=== PATIENT | female | born 1950 | race Caucasian/White ===

== ENCOUNTER → 2016-05-02 | Outpatient (CLI) | payer MEDICARE ==
[2016-05-02 12:07] LABS: Bilirubin, Delta 0.1 mg/dL (0.0-0.2); Total Bilirubin 0.7 mg/dL (0.2-1.3)
== END | disposition home or self-care (01) ==
LOC: LABWHC1 09:54
PROVIDERS: ATTEND Internal Medicine Cardiovascular Disease
DX: E78.5 Hyperlipidemia, unspecified (principal)
CPT/HCPCS: 36415; 80061; 80076

== ENCOUNTER → 2016-11-02 | Outpatient (CLI) | payer MEDICARE ==
--- NOTE | 2016-11-06 09:11 | MM ---
Reason for exam: screening (asymptomatic). Last mammogram was performed 2 years and 1 month ago. History: Patient is postmenopausal. Benign excisional biopsy of the right breast, 1997. Physical Findings: A clinical breast exam by your physician is recommended on an annual basis and results should be correlated with mammographic findings. MG 3D Screening Mammo W/Cad Bilateral CC and MLO view(s) were taken. Prior study comparison: October 05, 2014, bilateral MG screening mammo w CAD. November 29, 2011, bilateral digital screening mammo w/CAD. There are scattered fibroglandular densities. No significant changes when compared with prior studies. ASSESSMENT: Negative, BI-RAD 1 RECOMMENDATION: Routine screening mammogram of both breasts in 1 year.
== END | disposition home or self-care (01) ==
LOC: RADMAMWWP 15:41
PROVIDERS: ATTEND Family Medicine
DX: Z12.31 Encounter for screening mammogram for malignant neoplasm of breast (principal)
CPT/HCPCS: 77063; G0202

== ENCOUNTER → 2017-06-14 | Outpatient (CLI) | payer MEDICARE | END | disposition home or self-care (01) | LOC: RADMAMWWP 16:47 | PROVIDERS: ATTEND Family Medicine | DX: Z53.9 Procedure and treatment not carried out, unspecified reason (principal) ==

== ENCOUNTER 2017-11-20 20:55 | Emergency (ER) | payer MEDICARE, OTHER ==
[2017-11-20 21:13] VITALS: RESP 18; TEMP 97.8
[2017-11-20 22:10] LABS: Basophils # (A) 0.1 k/uL (0-0.2); Basophils % (A) 1 %; Eosinophils # (A) 0.2 k/uL (0-0.7); Eosinophils % (A) 3 %; HCT 47.4 % (34.0-46.0); HGB 16.2 gm/dL (11.4-16.0); Lymphocytes # (A) 2.6 k/uL (1.0-4.8); Lymphocytes % (A) 33 %; MCHC 34.2 g/dL (31.0-37.0); MCV 93.4 fL (80.0-100.0); Mean Platelet Volume 7.1; Monocytes # (A) 0.5 k/uL (0-1.0); Monocytes % (A) 6 %; Neutrophils # (A) 4.3 k/uL (1.3-7.7); Neutrophils % (A) 54 %; Platelet Count 274 k/uL (150-450); RBC 5.07 m/uL (3.80-5.40); RDW 13.6 % (11.5-15.5)
[2017-11-20 22:18] LABS: ALT 53 U/L (9-52); AST 28 U/L (14-36); Albumin 4.6 g/dL (3.5-5.0); Alkaline Phosphatase 75 U/L (38-126); Anion Gap 10 mmol/L; Blood Urea Nitrogen 24 mg/dL (7-17); Calcium 10.4 mg/dL (8.4-10.2); Carbon Dioxide 23 mmol/L (22-30); Chloride 108 mmol/L (98-107); Glucose 106 mg/dL (74-99); Potassium 3.9 mmol/L (3.5-5.1); Sodium 141 mmol/L (137-145); Total Bilirubin 0.5 mg/dL (0.2-1.3); Total Protein 7.4 g/dL (6.3-8.2)
[2017-11-20 22:21] LABS: Partial Thromboplastin Time 24.1 sec (22.0-30.0); Prothrombin Time 9.7 sec (9.0-12.0)
[2017-11-20] MEDS ORDERED: OXYMETAZOLINE 0.05% NASL SPRAY 1 SPRAY BOTTLE NASAL STA (22:26)
[2017-11-20 23:42] VITALS: BP 145/83; PULSE 67
--- NOTE | 2017-11-20 23:57 | ED ---
General Adult HPI - General Chief complaint: ENT Stated complaint: bloody nose Time Seen by Provider: 11/20/17 21:35 Source: patient, RN notes reviewed, old records reviewed Mode of arrival: ambulatory Limitations: no limitations - History of Present Illness Initial comments: 67-year-old female presents for evaluation of left-sided nosebleed. Patient has history of nosebleeds in the past. She states over the past week she has had several left-sided nosebleeds. She describes the bleeding is quite significant. She is not on any blood thinners. Denies URI symptoms. Denies any trauma to the nose. - Related Data Home Medications Medication Instructions Recorded Confirmed Aspirin [Adult Low Dose Aspirin EC] 81 mg PO DAILY 11/20/17 11/20/17 Cholecalciferol [Vitamin D3] 1,000 unit PO DAILY 11/20/17 11/20/17 Citalopram Hydrobromide [CeleXA] 40 mg PO DAILY 11/20/17 11/20/17 Furosemide [Lasix] 40 mg PO DAILY 11/20/17 11/20/17 LORazepam [Ativan] 0.5 mg PO TID 11/20/17 11/20/17 Metoprolol Succinate (ER) [Toprol 12.5 mg PO HS 11/20/17 11/20/17 Xl] Metoprolol Succinate (ER) [Toprol 25 mg PO DAILY 11/20/17 11/20/17 Xl] Pravastatin Sodium 80 mg PO DAILY 11/20/17 11/20/17 Quinapril HCl 10 mg PO DAILY 11/20/17 11/20/17 Previous Rx's Medication Instructions Recorded Amoxic-Pot Clav 875-125Mg 1 tab PO Q12HR #10 tablet 11/20/17 [Augmentin 875-125] Allergies Allergy/AdvReac Type Severity Reaction Status Date / Time No Known Allergies Allergy Verified 11/20/17 21:32 Review of Systems ROS Statement: Those systems with pertinent positive or pertinent negative responses have been documented in the HPI. ROS Other: All systems not noted in ROS Statement are negative. Past Medical History Past Medical History: Coronary Artery Disease (CAD), Heart Failure, Hyperlipidemia, Hypertension History of Any Multi-Drug Resistant Organisms: None Reported Past Surgical History: No Surgical Hx Reported Past Psychological History: Anxiety, Depression Smoking Status: Never smoker Past Alcohol Use History: None Reported Past Drug Use History: None Reported General Exam Limitations: no limitations General appearance: alert, in no apparent distress Head exam: Present: atraumatic, normocephalic Eye exam: Present: normal appearance, PERRL ENT exam: Present: other (Significant bleeding from the left naris. Bleeding in the posterior oropharynx) Neck exam: Present: tenderness Respiratory exam: Present: normal lung sounds bilaterally. Absent: respiratory distress Cardiovascular Exam: Present: regular rate, normal rhythm GI/Abdominal exam: Present: soft. Absent: distended, tenderness Extremities exam: Present: normal inspection, normal capillary refill. Absent: pedal edema Course Vital Signs 11/20/17 11/20/17 11/20/17 21:11 21:20 23:41 Temperature 97.8 F Pulse Rate 71 67 Respiratory 18 18 Rate Blood Pressure 145/93 156/95 145/83 O2 Sat by Pulse 95 99 Oximetry Medical Decision Making - Medical Decision Making 67-year-old female presenting with nosebleed. This is quite significant on exam. Initial efforts including Afrin compression and so nitrate are unsuccessful. Nasal packing is applied with antibiotic ointment. Given the history laboratory studies are obtained, stable hemoglobin, normal coag studies. Patient is observed in the emergency department with no continued bleeding. Packing will remain in place until follow-up with ENT. She is prescribed prophylactic antibiotics. - Lab Data Result diagrams: 11/20/17 21:56 11/20/17 21:56 Lab Results 11/20/17 11/20/17 11/20/17 Range/Units 21:56 21:56 21:56 WBC 8.0 (3.8-10.6) k/uL RBC 5.07 (3.80-5.40) m/uL Hgb 16.2 H (11.4-16.0) gm/dL Hct 47.4 H (34.0-46.0) % MCV 93.4 (80.0-100.0) fL MCH 32.0 (25.0-35.0) pg MCHC 34.2 (31.0-37.0) g/dL RDW 13.6 (11.5-15.5) % Plt Count 274 (150-450) k/uL Neutrophils % 54 % Lymphocytes % 33 % Monocytes % 6 % Eosinophils % 3 % Basophils % 1 % Neutrophils # 4.3 (1.3-7.7) k/uL Lymphocytes # 2.6 (1.0-4.8) k/uL Monocytes # 0.5 (0-1.0) k/uL Eosinophils # 0.2 (0-0.7) k/uL Basophils # 0.1 (0-0.2) k/uL PT 9.7 (9.0-12.0) sec INR 1.0 (<1.2) APTT 24.1 (22.0-30.0) sec Sodium 141 (137-145) mmol/L Potassium 3.9 (3.5-5.1) mmol/L Chloride 108 H (98-107) mmol/L Carbon Dioxide 23 (22-30) mmol/L Anion Gap 10 mmol/L BUN 24 H (7-17) mg/dL Creatinine 0.50 L (0.52-1.04) mg/dL Est GFR (CKD-EPI)AfAm >90 (>60 ml/min/1.73 sqM) Est GFR (CKD-EPI)NonAf >90 (>60 ml/min/1.73 sqM) Glucose 106 H (74-99) mg/dL Calcium 10.4 H (8.4-10.2) mg/dL Total Bilirubin 0.5 (0.2-1.3) mg/dL AST 28 (14-36) U/L ALT 53 H (9-52) U/L Alkaline Phosphatase 75 (38-126) U/L Total Protein 7.4 (6.3-8.2) g/dL Albumin 4.6 (3.5-5.0) g/dL Disposition Clinical Impression: Epistaxis Disposition: HOME SELF-CARE Condition: Good Instructions: Nosebleed (ED) Prescriptions: Amoxic-Pot Clav 875-125Mg [Augmentin 875-125] 1 tab PO Q12HR #10 tablet Is patient prescribed a controlled substance at d/c from ED?: No Referrals: Abner Randhawa MD [Primary Care Provider] - 1-2 days Devin Engel DO [Doctor of Osteopathic Medicine] - 1-2 days Time of Disposition: 23:56
== END 2017-11-21 00:10 | disposition home or self-care (01) ==
LOC: EC 20:55
DX: R04.0 Epistaxis (principal); I25.10 Atherosclerotic heart disease of native coronary artery without angina pectoris; I11.0 Hypertensive heart disease with heart failure; I50.9 Heart failure, unspecified; E78.5 Hyperlipidemia, unspecified; F32.9 Major depressive disorder, single episode, unspecified; F41.9 Anxiety disorder, unspecified; Z79.82 Long term (current) use of aspirin; Z79.899 Other long term (current) drug therapy
CPT/HCPCS: 30901; 36415; 80053; 85025; 85610; 85730; 99284

== ENCOUNTER → 2018-04-04 | Outpatient (CLI) | payer MEDICARE, OTHER ==
--- NOTE | 2018-04-07 06:36 | MM ---
Reason for exam: screening (asymptomatic). Last mammogram was performed 1 year and 5 months ago. History: Patient is postmenopausal. Benign excisional biopsy of the right breast, 1997. MG Screening Mammo w CAD Bilateral CC and MLO view(s) were taken. Prior study comparison: November 02, 2016, bilateral MG 3d screening mammo w/cad. October 05, 2014, bilateral MG screening mammo w CAD. The breast tissue is heterogeneously dense. This may lower the sensitivity of mammography. No suspicious abnormality right breast. There is a focal asymmetry on the left in the upper outer quadrant at middle depth. ASSESSMENT: Incomplete: need additional imaging evaluation, BI-RAD 0 RECOMMENDATION: Special view mammogram of the left breast.
== END | disposition home or self-care (01) ==
LOC: RADMAMWWP 16:59
PROVIDERS: ATTEND Family Medicine
DX: Z12.31 Encounter for screening mammogram for malignant neoplasm of breast (principal)
CPT/HCPCS: 77067

== ENCOUNTER → 2018-05-13 | Outpatient (CLI) | payer MEDICARE, OTHER ==
--- NOTE | 2018-05-13 10:28 | MM ---
Reason for exam: additional evaluation requested from abnormal screening. Last mammogram was performed 1 month ago. History: Patient is postmenopausal. Benign excisional biopsy of the right breast, 1997. Physical Findings: Nurse did not find any significant physical abnormalities on exam. MG Work Up Mamm w CAD LT Spot compression CC, spot compression MLO, and ML view(s) were taken of the left breast. Prior study comparison: April 04, 2018, bilateral MG screening mammo w CAD. November 02, 2016, bilateral MG 3d screening mammo w/cad. The breast tissue is heterogeneously dense. This may lower the sensitivity of mammography. The questioned upper outer quadrant focal asymmetry disperses on additional views. These results were verbally communicated with the patient and result sheet given to the patient on 05/13/18. ASSESSMENT: Negative, BI-RAD 1 RECOMMENDATION: Return to routine screening mammogram schedule for both breasts. Back on schedule.
== END | disposition home or self-care (01) ==
LOC: RADMAMWWP 09:02
PROVIDERS: ATTEND Family Medicine
DX: R92.8 Other abnormal and inconclusive findings on diagnostic imaging of breast (principal)
CPT/HCPCS: 77065

== ENCOUNTER → 2018-12-19 | Outpatient (CLI) | payer MEDICARE, OTHER ==
--- NOTE | 2018-12-19 16:39 | CT ---
EXAMINATION TYPE: CT abdomen pelvis wo con DATE OF EXAM: 12/19/2018 COMPARISON: 06/03/2010 INDICATION: Right flank pain radiating into right upper quadrant abdominal pain. DLP: 838.1 mGycm, Automated exposure control for dose reduction was used. CONTRAST: None Study performed without Oral Contrast TECHNIQUE: Axial images were obtained from above the diaphragm to the pubic rami in the axial plane a t 5 mm thick sections. Reconstructed images are reviewed on the computer in the coronal plane. FINDINGS: Limited CT sections are obtained the lung bases. The lung bases are clear. CT ABDOMEN: Liver: There is a large dense calcification within the mid right lobe of the liver. Liver is otherwis e unremarkable. Spleen: Normal Pancreas: Normal Adrenal glands: There is thickening of the left adrenal gland measuring 1.0 cm. Gallbladder: Normal Kidneys: No masses are evident. No hydronephrosis is present. There is a hypodense area within the inferior lateral right kidney measuring 1.7 cm in 0 Hounsfield units compatible with a cyst. There a re 2 x 0.3 cm calcifications within the inferior poler right kidney without evidence of obstruction. Aorta: Normal Vascular calcification is within the aorta. Inferior vena cava: Normal. CT PELVIS: Loops of bowel within the abdomen and pelvis are normal. Study is performed without oral contrast limiting bowel evaluation. Appendix: Normal as visualized. Urinary bladder: Normal. Genitourinary structures: Uterus and ovaries are not identified. Osseous structures: No suspicious lytic or sclerotic lesions. Facet degenerative changes and degenera tive disc changes in the lower lumbar spine. IMPRESSIONS: 1. Nonobstructing inferior pole right renal stones. 2. Right inferior pole renal cyst. 3. Calcification within the liver.
== END | disposition home or self-care (01) ==
LOC: RADCTMAIN 15:34
PROVIDERS: ATTEND Family Medicine
DX: N28.1 Cyst of kidney, acquired (principal); N20.0 Calculus of kidney; K76.89 Other specified diseases of liver
CPT/HCPCS: 74176

== ENCOUNTER 2020-05-28 19:31 | Observation (INO) | payer MEDICARE, OTHER ==
--- NOTE | 2020-05-28 19:53 | ED ---
Chest Pain HPI - General Chief Complaint: Chest Pain Stated Complaint: Chest Pain, SOB, Dizziness Time Seen by Provider: 05/28/20 19:35 Source: patient Mode of arrival: wheelchair Limitations: language barrier - History of Present Illness Initial Comments: 69-year-old female with past medical history of hyperlipidemia and hypertension presents to emergency room with reported chest pain and shortness of breath. Patient reports that her symptoms started around 2 PM this afternoon. She has pain located over the left side of her chest which radiates into her left jaw. Admits to associated shortness of breath. Patient follows with Dr. Tello for "bradycardia". Denies previous history of coronary disease. Last stress test was one year ago. Denies history of DVT or PE. No calf pain or swelling. No other alleviating, precipitating or modifying factors - Related Data Home Medications Medication Instructions Recorded Confirmed Aspirin [Adult Low Dose Aspirin EC] 81 mg PO DAILY PRN 11/20/17 05/28/20 Cholecalciferol [Vitamin D3 (25 1,000 unit PO DAILY 11/20/17 05/28/20 Mcg = 1000 Iu)] Citalopram Hydrobromide [CeleXA] 40 mg PO DAILY 11/20/17 05/28/20 Furosemide [Lasix] 20 mg PO BID 11/20/17 05/28/20 LORazepam [Ativan] 0.5 mg PO TID 11/20/17 05/28/20 Metoprolol Succinate (ER) [Toprol 12.5 mg PO HS 11/20/17 05/28/20 XL] Metoprolol Succinate (ER) [Toprol 25 mg PO DAILY 11/20/17 05/28/20 XL] Pravastatin Sodium 80 mg PO DAILY 11/20/17 05/28/20 Quinapril HCl 10 mg PO DAILY 11/20/17 05/28/20 Latanoprost/Pf [Latanoprost 0.005% 1 drop BOTH EYES HS 05/28/20 05/28/20 Eye Drop] Loratadine [Claritin] 10 mg PO DAILY PRN 05/28/20 05/28/20 Vit C/E/Zn/Coppr/Lutein/Zeaxan 1 cap PO BID 05/28/20 05/28/20 [Preservision Areds 2 Softgel] Previous Rx's Medication Instructions Recorded Pantoprazole Sodium [Protonix] 40 mg PO BID #60 tablet. 05/29/20 Allergies Allergy/AdvReac Type Severity Reaction Status Date / Time No Known Allergies Allergy Verified 05/28/20 21:44 Review of Systems ROS Statement: Those systems with pertinent positive or pertinent negative responses have been documented in the HPI. ROS Other: All systems not noted in ROS Statement are negative. EKG Findings - EKG Comments: EKG Findings:: EKG demonstrates a normal sinus rhythm with a ventricular rate of 69. NM interval 170. QRS 168. QTC of 44. Left bundle branch block present. Left axis deviation. No acute ST segment elevations Past Medical History Past Medical History: Coronary Artery Disease (CAD), Heart Failure, Hyperlipidemia, Hypertension History of Any Multi-Drug Resistant Organisms: None Reported Past Surgical History: No Surgical Hx Reported Past Psychological History: Anxiety, Depression Smoking Status: Never smoker Past Alcohol Use History: None Reported Past Drug Use History: None Reported General Exam Limitations: language barrier General appearance: alert, in no apparent distress Head exam: Present: atraumatic, normocephalic, normal inspection Eye exam: Present: normal appearance, PERRL, EOMI. Absent: scleral icterus, conjunctival injection, periorbital swelling ENT exam: Present: normal exam, mucous membranes moist Neck exam: Present: normal inspection. Absent: tenderness, meningismus, lymphadenopathy Respiratory exam: Present: normal lung sounds bilaterally. Absent: respiratory distress, wheezes, rales, rhonchi, stridor Cardiovascular Exam: Present: regular rate, normal rhythm, normal heart sounds. Absent: systolic murmur, diastolic murmur, rubs, gallop, clicks GI/Abdominal exam: Present: soft, normal bowel sounds. Absent: distended, tenderness, guarding, rebound, rigid Extremities exam: Present: normal inspection, full ROM, normal capillary refill. Absent: tenderness, pedal edema, joint swelling, calf tenderness Back exam: Present: normal inspection Neurological exam: Present: alert, oriented X3, CN II-XII intact Psychiatric exam: Present: normal affect, normal mood Skin exam: Present: warm, dry, intact, normal color. Absent: rash Course Vital Signs 05/28/20 05/28/20 05/28/20 19:33 21:00 21:01 Temperature 97.9 F Pulse Rate 71 66 66 Respiratory 20 18 Rate Blood Pressure 166/95 155/93 O2 Sat by Pulse 97 98 98 Oximetry 05/28/20 05/28/20 05/28/20 21:30 22:00 22:30 Temperature Pulse Rate 65 65 66 Respiratory 17 18 Rate Blood Pressure 155/93 159/91 149/92 O2 Sat by Pulse 97 98 Oximetry 05/28/20 05/28/20 05/29/20 23:00 23:30 00:00 Temperature Pulse Rate 65 62 63 Respiratory 18 Rate Blood Pressure 153/94 163/91 149/88 O2 Sat by Pulse 97 Oximetry 05/29/20 05/29/20 00:30 04:37 Temperature Pulse Rate 63 64 Respiratory 18 Rate Blood Pressure 162/94 152/92 O2 Sat by Pulse 96 Oximetry Chest Pain MDM - MDM On arrival patient was placed into room 2. A thorough history and physical exam was performed. Hooked to continuous pulse ox and cardiac monitoring. 12-lead EKG was performed. I will traces are conducted. D-dimer 0.53. Troponin is ne gative. BNP 183. Chest x-ray demonstrates no active cart opponent process. Patient remains pain-free in the emergency department. She was given 2 chewable aspirins that she did take 2 at home. Patient does have a left bundle branch block on 12-lead EKG. Unable to compare this to a previous EKG. Discuss results with the patient and her daughter at bedside. Did recommend overnight observation for cardiology consultation. Patient did agree to this. She is currently awaiting a bed on the floor Disposition Clinical Impression: Chest pain Disposition: ADMITTED IP TO THIS HOSP Condition: Stable Is patient prescribed a controlled substance at d/c from ED?: No Decision to Admit Reason: Admit from EC Decision Date: 05/28/20 Decision Time: 22:36
[2020-05-28] MEDS ORDERED: ASPIRIN 81 MG PO STA (20:14)
[2020-05-28 20:34] LABS: Basophils # (A) 0.1 k/uL (0-0.2); Basophils % (A) 1 %; Eosinophils # (A) 0.3 k/uL (0-0.7); Eosinophils % (A) 4 %; HCT 46.7 % (34.0-46.0); HGB 15.9 gm/dL (11.4-16.0); Lymphocytes % (A) 25 %; MCH 32.1 pg (25.0-35.0); MCV 94.4 fL (80.0-100.0); Mean Platelet Volume 7.2; Monocytes # (A) 0.6 k/uL (0-1.0); Monocytes % (A) 7 %; Neutrophils # (A) 4.8 k/uL (1.3-7.7); Neutrophils % (A) 61 %; Platelet Count 243 k/uL (150-450); RBC 4.95 m/uL (3.80-5.40); RDW 13.1 % (11.5-15.5)
[2020-05-28 20:45] LABS: ALT 46 U/L (4-34); AST 32 U/L (14-36); African American GFR (CKD) >90 (>60 ml/min/1.73 sqM); Albumin 4.5 g/dL (3.5-5.0); Alkaline Phosphatase 90 U/L (38-126); Anion Gap 8 mmol/L; Blood Urea Nitrogen 20 mg/dL (7-17); Calcium 10.6 mg/dL (8.4-10.2); Carbon Dioxide 27 mmol/L (22-30); Chloride 102 mmol/L (98-107); Glucose 109 mg/dL (74-99); Lipase 107 U/L (23-300); Magnesium 2.2 mg/dL (1.6-2.3); Non-African American GFR(CKD) >90 (>60 ml/min/1.73 sqM); Potassium 4.1 mmol/L (3.5-5.1); Sodium 137 mmol/L (137-145); Total Bilirubin 0.6 mg/dL (0.2-1.3); Total Protein 7.4 g/dL (6.3-8.2)
[2020-05-28 20:47] LABS: D-Dimer 0.53 mg/L FEU (<0.60); Partial Thromboplastin Time 24.9 sec (22.0-30.0); Prothrombin Time 10.3 sec (9.0-12.0)
--- NOTE | 2020-05-28 20:49 | XR ---
EXAMINATION TYPE: XR chest 2V DATE OF EXAM: 05/28/2020 COMPARISON: NONE HISTORY: Chest pain TECHNIQUE: 06/11/2010 FINDINGS: There is no heart failure nor confluent pneumonic infiltrate. Costophrenic angles are clear . There are chest leads. Bony thorax is intact. IMPRESSION: No active cardiopulmonary disease. No change.
[2020-05-28 21:03] VITALS: RESP 18
[2020-05-28] MEDS ORDERED: NALOXONE 0.4 MG/ML 1 ML VIAL IV PRN (22:37)
[2020-05-29 02:44] LABS: Basophils # (A) 0.1 k/uL (0-0.2); Basophils % (A) 1 %; Eosinophils # (A) 0.3 k/uL (0-0.7); Eosinophils % (A) 4 %; HCT 45.3 % (34.0-46.0); HGB 15.2 gm/dL (11.4-16.0); Lymphocytes # (A) 2.3 k/uL (1.0-4.8); Lymphocytes % (A) 34 %; MCHC 33.5 g/dL (31.0-37.0); MCV 95.4 fL (80.0-100.0); Mean Platelet Volume 7.4; Monocytes # (A) 0.5 k/uL (0-1.0); Monocytes % (A) 8 %; Neutrophils # (A) 3.4 k/uL (1.3-7.7); Neutrophils % (A) 51 %; Platelet Count 238 k/uL (150-450); RBC 4.75 m/uL (3.80-5.40); RDW 13.1 % (11.5-15.5); WBC 6.7 k/uL (3.8-10.6)
[2020-05-29 03:21] LABS: African American GFR (CKD) >90 (>60 ml/min/1.73 sqM); Anion Gap 9 mmol/L; Blood Urea Nitrogen 17 mg/dL (7-17); Carbon Dioxide 26 mmol/L (22-30); Chloride 103 mmol/L (98-107); Glucose 102 mg/dL (74-99); Non-African American GFR(CKD) >90 (>60 ml/min/1.73 sqM); Potassium 3.7 mmol/L (3.5-5.1); Sodium 138 mmol/L (137-145)
[2020-05-29] MEDS ORDERED: ASPIRIN 81 MG PO PRN (11:18)
[2020-05-29] MEDS ORDERED: FAMOTIDINE 20 MG TAB PO PRN (11:18)
[2020-05-29] MEDS ORDERED: CHOLECALCIFEROL 25 MCG (1000 IU) TABLET PO SCH (11:30)
[2020-05-29] MEDS ORDERED: FUROSEMIDE 20 MG TAB PO SCH (11:30)
[2020-05-29] MEDS ORDERED: VIT A,C & E-LUTEIN-MINERALS 1 EACH TAB PO SCH (11:30)
[2020-05-29] MEDS ORDERED: LORazepam 0.5 MG TAB PO SCH (11:30)
[2020-05-29] MEDS ORDERED: PRAVASTATIN SODIUM 80 MG TAB PO SCH (11:30)
[2020-05-29] MEDS ORDERED: METOPROLOL SUCCINATE (ER) 25 MG TAB.ER.24H PO SCH ×2 (11:30→21:00)
[2020-05-29] MEDS ORDERED: lisinopriL 10 MG TAB PO SCH (11:30)
[2020-05-29] MEDS ORDERED: CITALOPRAM HYDROBROMIDE 20 MG TAB PO SCH (11:30)
[2020-05-29 14:57] VITALS: BP 141/79; PULSE 63; TEMP 97.5
--- NOTE | 2020-05-29 15:34 | P.CRDCN ---
<Kalpana Durham - Last Filed: 05/29/20 15:33> History of Present Illness Consult date: 05/29/20 History of present illness: HISTORY OF PRESENT ILLNESS: This is a 69-year-old female with a past medical history significant for nonischemic cardiomyopathy, hypertension, hype rlipidemia, anxiety, depression, and daily alcohol use. Patient follows in the office with Dr. Tello. We have been asked to see the patient in consultation for chest pain. Patient examined this morning at the bedside. Patient states yesterday afternoon she was at home laying down when she began having discomfort in the upper part of her abdomen. She states the pain progressed and went up into her chest. She states that it felt like heartburn initially. She reports the pain radiated to her left jaw and into her upper back. She denies any nausea or vomiting. She denies any diaphoresis. She reports any shortness of breath. She states the pain was intermittent on and off yesterday throughout the afternoon. She reports when she came to the emergency room the pain had resolved and she has been chest pain-free since that time. Patient states she had a stress test performed greater than 1 year ago which was negative to her knowledge. DIAGNOSTICS: EKG reveals sinus mechanism with left axis deviation and left bundle branch block. Patient does have a history of left bundle branch block per office EKGs Chest xray no active cardiopulmonary disease Laboratory data: WBC 6.7. Hemoglobin 15.2. Platelet count 238. D-dimer 0.53. Sodium 138. Potassium 3.8. BUN 17. Creatinine 0.51. Troponin negative 3. BNP 183. Current home cardiac medications include Lasix 20 mg twice a day, metoprolol succinate 12.5 mg in the morning and 12.5 mg at night, quinapril 10 mg daily, pravastatin 80 mg daily, and aspirin 81 mg daily REVIEW OF SYSTEMS: At the time of my exam: CONSTITUTIONAL: Denies fever or chills. HEENT: Denies blurred vision, vision changes, or eye pain. Denies hemoptysis CARDIOVASCULAR: Denies chest pain, orthopnea, PND or palpitations RESPIRATORY: No shortness of breath. GASTROINTESTINAL: Denies abdominal pain. Denies nausea or vomiting. HEMATOLOGIC: Denies bleeding disorders. GENITOURINARY: Denies any blood in urine. SKIN: Denies pruitis. Denies rash. PHYSICAL EXAM: VITAL SIGNS: Reviewed. GENERAL: Well-developed in no acute distress. HEENT: Head is normocephalic. Pupils are equal, round. Sclerae anicteric. Mucous membranes of the mouth are moist. Neck supple. No JVD or thyromegaly LUNGS: Respirations even and unlabored. Lungs essentially clear to auscultation bilaterally. HEART: Regular rate and rhythm. S1 and S2 heard. ABDOMEN: Soft. Nondistended. Nontender. EXTREMITIES: Normal range of motion. No clubbing or cyanosis. Peripheral pulses intact. No lower extremity edema NEUROLOGIC: Awake and alert. Oriented x 3. ASSESSMENT: Chest pain History of nonischemic cardiomyopathy Chronic systolic congestive heart failure, currently euvolemic History of left bundle branch block Hyperlipidemia Hypertension Daily alcohol use PLAN: An acute coronary event has been ruled out Obtain 2-D echo to assess cardiac structure and function Resume home cardiac medications Dr. Vasques evaluated patient and discussed inpatient versus outpatient stress testing. Patient and her daughter have agreed to be discharged home today and will follow-up on an outpatient basis for stress testing to be performed Nurse practitioner note has been reviewed by physician. Signing provider agrees with the documented findings, assessment, and plan of care. Past Medical History Past Medical History: Coronary Artery Disease (CAD), Heart Failure, Hyperlipidemia, Hypertension History of Any Multi-Drug Resistant Organisms: None Reported Past Surgical History: No Surgical Hx Reported Past Psychological History: Anxiety, Depression Smoking Status: Never smoker Past Alcohol Use History: None Reported Past Drug Use History: None Reported Medications and Allergies Home Medications Medication Instructions Recorded Confirmed Type Aspirin [Adult Low Dose Aspirin EC] 81 mg PO DAILY PRN 11/20/17 05/28/20 History Cholecalciferol [Vitamin D3] 1,000 unit PO DAILY 11/20/17 05/28/20 History Citalopram Hydrobromide [CeleXA] 40 mg PO DAILY 11/20/17 05/28/20 History Furosemide [Lasix] 20 mg PO BID 11/20/17 05/28/20 History LORazepam [Ativan] 0.5 mg PO TID 11/20/17 05/28/20 History Metoprolol Succinate (ER) [Toprol 12.5 mg PO HS 11/20/17 05/28/20 History Xl] Metoprolol Succinate (ER) [Toprol 25 mg PO DAILY 11/20/17 05/28/20 History Xl] Pravastatin Sodium 80 mg PO DAILY 11/20/17 05/28/20 History Quinapril HCl 10 mg PO DAILY 11/20/17 05/28/20 History Famotidine [Pepcid] 20 mg PO BID PRN 05/28/20 05/28/20 History Latanoprost/Pf [Latanoprost 0.005% 1 drop BOTH EYES HS 05/28/20 05/28/20 History Eye Drop] Loratadine [Claritin] 10 mg PO DAILY PRN 05/28/20 05/28/20 History Vit C/E/Zn/Coppr/Lutein/Zeaxan 1 cap PO BID 05/28/20 05/28/20 History [Preservision Areds 2 Softgel] Allergies Allergy/AdvReac Type Severity Reaction Status Date / Time No Known Allergies Allergy Verified 05/28/20 21:44 Physical Exam Vitals: Vital Signs Temp Pulse Pulse Resp BP BP Pulse Ox 05/29/20 08:17 97.8 F 68 18 149/86 94 L 05/29/20 04:37 64 152/92 05/29/20 00:30 63 18 162/94 96 05/29/20 00:00 63 149/88 05/28/20 23:30 62 18 163/91 97 05/28/20 23:00 65 153/94 05/28/20 22:30 66 18 149/92 98 05/28/20 22:00 65 17 159/91 97 05/28/20 21:30 65 155/93 05/28/20 21:01 66 18 155/93 98 05/28/20 21:00 66 98 05/28/20 19:33 97.9 F 71 20 166/95 97 Intake and Output 05/28/20 05/29/20 05/29/20 22:59 06:59 14:59 Other: Weight 86.183 kg 86.183 kg Results 05/29/20 02:14 05/29/20 02:14 Cardiac Enzymes 05/28/20 05/28/20 05/28/20 Range/Units 20:28 20:28 23:00 AST 32 (14-36) U/L Troponin I <0.012 <0.012 (0.000-0.034) ng/mL 05/29/20 Range/Units 02:14 AST (14-36) U/L Troponin I <0.012 (0.000-0.034) ng/mL Coagulation 05/28/20 Range/Units 20:28 PT 10.3 (9.0-12.0) sec APTT 24.9 (22.0-30.0) sec CBC 05/28/20 05/29/20 Range/Units 20:28 02:14 WBC 8.0 6.7 (3.8-10.6) k/uL RBC 4.95 4.75 (3.80-5.40) m/uL Hgb 15.9 15.2 (11.4-16.0) gm/dL Hct 46.7 H 45.3 (34.0-46.0) % Plt Count 243 238 (150-450) k/uL Comprehensive Metabolic Panel 05/28/20 05/29/20 Range/Units 20:28 02:14 Sodium 137 138 (137-145) mmol/L Potassium 4.1 3.7 (3.5-5.1) mmol/L Chloride 102 103 (98-107) mmol/L Carbon Dioxide 27 26 (22-30) mmol/L BUN 20 H 17 (7-17) mg/dL Creatinine 0.60 0.51 L (0.52-1.04) mg/dL Glucose 109 H 102 H (74-99) mg/dL Calcium 10.6 H 10.0 (8.4-10.2) mg/dL AST 32 (14-36) U/L ALT 46 H (4-34) U/L Alkaline Phosphatase 90 (38-126) U/L Total Protein 7.4 (6.3-8.2) g/dL Albumin 4.5 (3.5-5.0) g/dL Current Medications Generic Name Dose Route Start Last Admin Trade Name Freq PRN Reason Stop Dose Admin Aspirin 81 mg 05/29/20 11:18 Aspirin 81 Mg PO DAILY PRN Pain Cholecalciferol 25 mcg 05/29/20 11:30 05/29/20 12:35 Cholecalciferol 25 Mcg (1000 Iu) Tablet PO 25 mcg DAILY EDEN Administration Citalopram Hydrobromide 40 mg 05/29/20 11:30 05/29/20 12:35 Citalopram Hydrobromide 20 Mg Tab PO 40 mg DAILY EDEN Administration Famotidine 20 mg 05/29/20 11:18 Famotidine 20 Mg Tab PO BID PRN GI Upset Furosemide 20 mg 05/29/20 11:30 05/29/20 12:35 Furosemide 20 Mg Tab PO 20 mg BID EDEN Administration Latanoprost 1 drops 05/29/20 21:00 Latanoprost 0.005% Ophth Drops 2.5 Ml Btl BOTH EYES HS EDEN Lisinopril 10 mg 05/29/20 11:30 05/29/20 12:36 Lisinopril 10 Mg Tab PO 10 mg DAILY EDEN Administration Lorazepam 0.5 mg 05/29/20 11:30 05/29/20 12:35 Lorazepam 0.5 Mg Tab PO 0.5 mg TID EDEN Administration Metoprolol Succinate 25 mg 05/29/20 11:30 05/29/20 12:35 Metoprolol Succinate (Er) 25 Mg Tab.Er.24h PO 25 mg DAILY EDEN Administration Metoprolol Succinate 12.5 mg 05/29/20 21:00 Metoprolol Succinate (Er) 25 Mg Tab.Er.24h PO HS [facility] Multivitamins/Minerals 1 each 05/29/20 11:30 05/29/20 12:35 Vit A,C & F-Xpmwah-Pkmsuwwo 1 Each Tab PO 1 each BID EDEN Administration Naloxone HCl 0.2 mg 05/28/20 22:37 Naloxone 0.4 Mg/Ml 1 Ml Vial IV Q2M PRN Opioid Reversal Pravastatin Sodium 80 mg 05/29/20 11:30 05/29/20 12:35 Pravastatin Sodium 80 Mg Tab PO 80 mg DAILY EDEN Administration Intake and Output 05/28/20 05/29/20 05/29/20 22:59 06:59 14:59 Other: Weight 86.183 kg 86.183 kg Patient Weight 05/30/20 06:59 Weight 86.183 kg 05/29/20 02:14 05/29/20 02:14 <Zach Vasques - Last Filed: 05/29/20 20:34> Physical Exam Vitals: Vital Signs Temp Pulse Pulse Resp BP BP Pulse Ox 05/29/20 14:57 97.5 F L 63 18 141/79 95 05/29/20 14:00 63 18 05/29/20 08:17 97.8 F 68 18 149/86 94 L 03/06/21 08:00 63 18 05/29/20 04:37 64 152/92 05/29/20 00:30 63 18 162/94 96 05/29/20 00:00 63 149/88 05/28/20 23:30 62 18 163/91 97 05/28/20 23:00 65 153/94 05/28/20 22:30 66 18 149/92 98 05/28/20 22:00 65 17 159/91 97 05/28/20 21:30 65 155/93 05/28/20 21:01 66 18 155/93 98 05/28/20 21:00 66 98 Intake and Output 05/29/20 05/29/20 05/29/20 06:59 14:59 22:59 Intake Total 240 Balance 240 Intake: Oral 240 Other: Voiding Method Toilet # Voids 2 Weight 86.183 kg Results 05/29/20 02:14 05/29/20 02:14 Cardiac Enzymes 05/28/20 05/28/20 05/28/20 Range/Units 20:28 20:28 23:00 AST 32 (14-36) U/L Troponin I <0.012 <0.012 (0.000-0.034) ng/mL 05/29/20 Range/Units 02:14 AST (14-36) U/L Troponin I <0.012 (0.000-0.034) ng/mL Coagulation 05/28/20 Range/Units 20:28 PT 10.3 (9.0-12.0) sec APTT 24.9 (22.0-30.0) sec CBC 05/28/20 05/29/20 Range/Units 20:28 02:14 WBC 8.0 6.7 (3.8-10.6) k/uL RBC 4.95 4.75 (3.80-5.40) m/uL Hgb 15.9 15.2 (11.4-16.0) gm/dL Hct 46.7 H 45.3 (34.0-46.0) % Plt Count 243 238 (150-450) k/uL Comprehensive Metabolic Panel 05/28/20 05/29/20 Range/Units 20:28 02:14 Sodium 137 138 (137-145) mmol/L Potassium 4.1 3.7 (3.5-5.1) mmol/L Chloride 102 103 (98-107) mmol/L Carbon Dioxide 27 26 (22-30) mmol/L BUN 20 H 17 (7-17) mg/dL Creatinine 0.60 0.51 L (0.52-1.04) mg/dL Glucose 109 H 102 H (74-99) mg/dL Calcium 10.6 H 10.0 (8.4-10.2) mg/dL AST 32 (14-36) U/L ALT 46 H (4-34) U/L Alkaline Phosphatase 90 (38-126) U/L Total Protein 7.4 (6.3-8.2) g/dL Albumin 4.5 (3.5-5.0) g/dL Intake and Output 05/29/20 05/29/20 05/29/20 06:59 14:59 22:59 Intake Total 240 Balance 240 Intake: Oral 240 Other: Voiding Method Toilet # Voids 2 Weight 86.183 kg Patient Weight 05/30/20 06:59 Weight 86.183 kg 05/29/20 02:14 05/29/20 02:14
--- NOTE | 2020-05-29 17:35 | ECHOF ---
Referral Reason:lv function MEASUREMENTS -------- HEIGHT: 165.1 cm WEIGHT: 86.2 kg BP: IVSd: 1.2 cm (0.6 - 1.1) LVIDd: 4.2 cm (3.9 - 5.3) LVPWd: 1.2 cm (0.6 - 1.1) IVSs: 1.4 cm LVIDs: 2.9 cm LVPWs: 1.4 cm Ao Diam: 3.3 cm (2.0 - 3.7) AV Cusp: 1.9 cm (1.5 - 2.6) LA Diam: 3.7 cm (2.7 - 3.8) MV EXCURSION: 11.106 mm (> 18.000) MV EF SLOPE: 47 mm/s (70 - 150) EPSS: 1.5 cm MV E Yehuda: 0.65 m/s MV DecT: 252 ms MV A Yehuda: 0.73 m/s MV E/A Ratio: 0.89 RAP: 5.00 mmHg RVSP: 9.86 mmHg FINDINGS -------- This was a technically difficult study with suboptimal views. The left ventricular size is normal. Left ventricular wall thickness is normal. Overall left vent ricular systolic function is mild-moderately impaired with, an EF between 40 - 45 %. There is parad oxical/dysynergic septal motion consistent with left bundle branch block. The right ventricle is normal in size. The left atrial size is normal. The right atrial size is normal. 5.0mg of Lumason was utilized for enhancement of images The aortic valve is trileaflet and appears structurally normal. The mitral valve is normal. There is trace mitral regurgitation. The tricuspid valve appears structurally normal. Trace tricuspid regurgitation present. Right kenyatta tricular systolic pressure is normal at < 35 mmHg. There is no pulmonic regurgitation present. The aortic root size is normal. IVC Not well visulized. There is no pericardial effusion. CONCLUSIONS -------- 1. The left ventricular size is normal. 2. Left ventricular wall thickness is normal. 3. Overall left ventricular systolic function is mild-moderately impaired with, an EF between 40 - 45 %. 4. There is paradoxical/dysynergic septal motion consistent with left bundle branch block. 5. There is trace mitral regurgitation. 6. Trace tricuspid regurgitation present. 7. There is no pericardial effusion. [employer]ER: Dominique Link RDCS
[2020-05-29] MEDS ORDERED: LATANOPROST 0.005% OPHTH DROPS 2.5 ML BTL BOTH EYES SCH (21:00)
--- NOTE | 2020-05-29 23:06 | P.HPIM ---
History of Present Illness H&P Date: 05/29/20 Chief Complaint: Chest pain History of presenting complaint: This is a very pleasant 69-year-old weeks speaking lady. She follows with Dr. padilla order [facility] and Dr. Herrera from cardiology. Chronic stable medical conditions include possible CHF, hypertension, hyperlipidemia. Denies any prior coronary artery disease. Patient yesterday held and her housework around 2 PM and to light on the couch. She fell this burning sensation from the epigastrium going upwards right up through her neck. Patient has been getting worsening reflux symptoms. Denied any perspiration dizziness lightheadedness. Has felt tired. Symptoms lasted for a few hours. Patient did take couple of baby aspirins and also took liquid Tums. Not much help. Decided to come in. Her daughter is at the bedside. Review of systems: GEN.: None EYES: None HEENT: None NECK: None RESPIRATORY: None CARDIOVASCULAR: As above GASTROINTESTINAL: As above GENITOURINARY: None MUSCULOSKELETAL: None LYMPHATICS: None HEMATOLOGICAL: None PSYCHIATRY: None NEUROLOGICAL: None Past medical history to include: Possible congestive heart failure, hypertension, hyperlipidemia, anxiety depression Social history: Lives with her daughter. Drinks one cocktail a day. No smoking. Family history: Reviewed, noncontributory to presentation Physical examination: VITAL SIGNS: 97.5, 68, 18, 149/86, 94% on room air GENERAL: BMI 31.6, laying in bed, awake. EYES: Pupils equal. Conjunctiva normal. HEENT: External appearance of nose and ears normal, oral cavity grossly normal. NECK: JVD not raised; masses not palpable. HEART: First and second heart sounds are normal; no edema. LUNGS: Respiratory rate normal; clear to auscultation. ABDOMEN: Soft, nontender, liver spleen not palpable, no masses palpable. PSYCH: Alert and oriented x3; mood and affect normal. NEUROLOGICAL: Cranial nerves grossly intact; no facial asymmetry, power and sensation grossly intact. LYMPHATICS: No lymph nodes palpable in the axilla and neck INVESTIGATIONS, reviewed in the clinical context: White count 6.7 hemoglobin 13.2 platelets 238 potassium 3.7 creatinine 0.5 Troponin I 3 negative ProBNP 183 Coronavirus [PCR]-not detected EKG tracing personally reviewed by me-sinus rhythm, left bundle-branch block Chest x-ray film personally reviewed by me-cardiomegaly 2-D echocardiogram-EF 40-45% Assessment and plan: -Patient presented with a burning sensation from the epigastric right upper the neck. This could be reflux or exacerbation doing patient's cardiac risk factors need to consider this is unstable angina. Cartilage consulted. -Chronic congestive heart failure from systolic dysfunction EF 40-45%. On Lasix and beta damon -Left bundle-branch block line-hyperlipidemia -Essential hypertension, on Toprol-XL -Anxiety depression otherwise specified, on Celexa -Obesity BMI 31.6, for weight loss measures Care was discussed with the patient and daughter the bedside. Cardiology was consulted. Past Medical History Past Medical History: Coronary Artery Disease (CAD), Heart Failure, Hyperlipidemia, Hypertension History of Any Multi-Drug Resistant Organisms: None Reported Past Surgical History: No Surgical Hx Reported Past Psychological History: Anxiety, Depression Smoking Status: Never smoker Past Alcohol Use History: None Reported Past Drug Use History: None Reported Medications and Allergies Home Medications Medication Instructions Recorded Confirmed Type Aspirin [Adult Low Dose Aspirin EC] 81 mg PO DAILY PRN 11/20/17 05/28/20 History Cholecalciferol [Vitamin D3] 1,000 unit PO DAILY 11/20/17 05/28/20 History Citalopram Hydrobromide [CeleXA] 40 mg PO DAILY 11/20/17 05/28/20 History Furosemide [Lasix] 20 mg PO BID 11/20/17 05/28/20 History LORazepam [Ativan] 0.5 mg PO TID 11/20/17 05/28/20 History Metoprolol Succinate (ER) [Toprol 12.5 mg PO HS 11/20/17 05/28/20 History Xl] Metoprolol Succinate (ER) [Toprol 25 mg PO DAILY 11/20/17 05/28/20 History Xl] Pravastatin Sodium 80 mg PO DAILY 11/20/17 05/28/20 History Quinapril HCl 10 mg PO DAILY 11/20/17 05/28/20 History Famotidine [Pepcid] 20 mg PO BID PRN 05/28/20 05/28/20 History Latanoprost/Pf [Latanoprost 0.005% 1 drop BOTH EYES HS 05/28/20 05/28/20 History Eye Drop] Loratadine [Claritin] 10 mg PO DAILY PRN 05/28/20 05/28/20 History Vit C/E/Zn/Coppr/Lutein/Zeaxan 1 cap PO BID 05/28/20 05/28/20 History [Preservision Areds 2 Softgel] Allergies Allergy/AdvReac Type Severity Reaction Status Date / Time No Known Allergies Allergy Verified 05/28/20 21:44 Physical Exam Vitals: Vital Signs Temp Pulse Pulse Resp BP BP Pulse Ox 05/29/20 08:17 97.8 F 68 18 149/86 94 L 05/29/20 04:37 64 152/92 05/29/20 00:30 63 18 162/94 96 05/29/20 00:00 63 149/88 05/28/20 23:30 62 18 163/91 97 05/28/20 23:00 65 153/94 05/28/20 22:30 66 18 149/92 98 05/28/20 22:00 65 17 159/91 97 05/28/20 21:30 65 155/93 05/28/20 21:01 66 18 155/93 98 05/28/20 21:00 66 98 05/28/20 19:33 97.9 F 71 20 166/95 97 Intake and Output 05/28/20 05/29/20 05/29/20 22:59 06:59 14:59 Other: Weight 86.183 kg 86.183 kg Results CBC & Chem 7: 05/29/20 02:14 05/29/20 02:14 Labs: Abnormal Lab Results - Last 24 Hours (Table) 05/28/20 05/28/20 05/29/20 Range/Units 20:28 20:28 02:14 Hct 46.7 H (34.0-46.0) % BUN 20 H (7-17) mg/dL Creatinine 0.51 L (0.52-1.04) mg/dL Glucose 109 H 102 H (74-99) mg/dL Calcium 10.6 H (8.4-10.2) mg/dL ALT 46 H (4-34) U/L Thrombosis Risk Factor Assmnt - Choose All That Apply Any of the Below Risk Factors Present?: Yes Each Factor Represents 1 point: Obesity (BMI >25) Other Risk Factors: Yes Each Risk Factor Represents 2 Points: Age 61-74 years Other congenital or acquired thrombophilia - If yes, enter type in comment: No Thrombosis Risk Factor Assessment Total Risk Factor Score: 3 Thrombosis Risk Factor Assessment Level: Moderate Risk
--- NOTE | 2020-05-29 23:10 | P.DS ---
Providers Date of admission: 05/28/20 22:38 Expected date of discharge: 05/29/20 Attending physician: Jose Daniel Lora Consults: 05/28/20 22:38 Consult Physician Urgent Consulting Provider: [facility] Consult Reason/Comments: acute chest pain, possible acs Do you want consulting provider notified?: Yes Primary care physician: Abner Randhawa MD Hospital Course: Chief Complaint: Chest pain History of presenting complaint: This is a very pleasant 69-year-old weeks speaking lady. She follows with Dr. randhawa order [facility] and Dr. Herrera from cardiology. Chronic stable medical conditions include possible CHF, hypertension, hyperlipidemia. Denies any prior coronary artery disease. Patient yesterday held and her housework ar ound 2 PM and to light on the couch. She fell this burning sensation from the epigastrium going upwards right up through her neck. Patient has been getting worsening reflux symptoms. Denied any perspiration dizziness lightheadedness. Has felt tired. Symptoms lasted for a few hours. Patient did take couple of baby aspirins and also took liquid Tums. Not much help. Decided to come in. Her daughter is at the bedside. Patient seen by Dr. Vasques from cardiology He discussed with the patient and daughter. They have opted for an outpatient stress test. Consultation: Dr. Vasques from cardiology Past medical history to include: Possible congestive heart failure, hypertension, hyperlipidemia, anxiety depression Social history: Lives with her daughter. Drinks one cocktail a day. No smoking. Family history: Reviewed, noncontributory to presentation Physical examination: VITAL SIGNS: 97.5, 63, 18, 141 with 79, 95% room air GENERAL: BMI 31.6, laying in bed, awake. EYES: Pupils equal. Conjunctiva normal. NECK: JVD not raised; masses not palpable. HEART: First and second heart sounds are normal; no edema. LUNGS: Respiratory rate normal; clear to auscultation. ABDOMEN: Soft, nontender, liver spleen not palpable, no masses palpable. PSYCH: Alert and oriented x3; mood and affect normal. INVESTIGATIONS, reviewed in the clinical context: White count 6.7 hemoglobin 13.2 platelets 238 potassium 3.7 creatinine 0.5 Troponin I 3 negative ProBNP 183 Coronavirus [PCR]-not detected EKG tracing personally reviewed by me-sinus rhythm, left bundle-branch block Chest x-ray film personally reviewed by me-cardiomegaly 2-D echocardiogram-EF 40-45% Assessment and plan: -Patient presented with a burning sensation from the epigastric right upper the neck. This could be reflux or exacerbation doing patient's cardiac risk factors need to consider this is unstable angina. Per cardiology discussion with patient [facility] outpatient stress test -GERD acute on chronic exacerbation. Increase dose of PPI -Chronic congestive heart failure from systolic dysfunction EF 40-45%. On Lasix and beta damon -Left bundle-branch block line-hyperlipidemia -Essential hypertension, on Toprol-XL -Anxiety depression otherwise specified, on Celexa -Obesity BMI 31.6, for weight loss measures Disposition: Home. Patient Condition at Discharge: Stable Plan - Discharge Summary Discharge Rx Participant: No New Discharge Prescriptions: No Action Metoprolol Succinate (ER) [Toprol Xl] 12.5 mg PO HS Quinapril HCl 10 mg PO DAILY Pravastatin Sodium 80 mg PO DAILY Cholecalciferol [Vitamin D3] 1,000 unit PO DAILY Aspirin [Adult Low Dose Aspirin EC] 81 mg PO DAILY PRN PRN Reason: Pain Metoprolol Succinate (ER) [Toprol Xl] 25 mg PO DAILY LORazepam [Ativan] 0.5 mg PO TID Furosemide [Lasix] 20 mg PO BID Citalopram Hydrobromide [CeleXA] 40 mg PO DAILY Latanoprost/Pf [Latanoprost 0.005% Eye Drop] 1 drop BOTH EYES HS Famotidine [Pepcid] 20 mg PO BID PRN PRN Reason: Gi Upset Vit C/E/Zn/Coppr/Lutein/Zeaxan [Preservision Areds 2 Softgel] 1 cap PO BID Loratadine [Claritin] 10 mg PO DAILY PRN PRN Reason: Allergy Symptoms Discharge Medication List Aspirin [Adult Low Dose Aspirin EC] 81 mg PO DAILY PRN 11/20/17 [History] Cholecalciferol [Vitamin D3] 1,000 unit PO DAILY 11/20/17 [History] Citalopram Hydrobromide [CeleXA] 40 mg PO DAILY 11/20/17 [History] Furosemide [Lasix] 20 mg PO BID 11/20/17 [History] LORazepam [Ativan] 0.5 mg PO TID 11/20/17 [History] Metoprolol Succinate (ER) [Toprol Xl] 12.5 mg PO HS 11/20/17 [History] Metoprolol Succinate (ER) [Toprol Xl] 25 mg PO DAILY 11/20/17 [History] Pravastatin Sodium 80 mg PO DAILY 11/20/17 [History] Quinapril HCl 10 mg PO DAILY 11/20/17 [History] Famotidine [Pepcid] 20 mg PO BID PRN 05/28/20 [History] Latanoprost/Pf [Latanoprost 0.005% Eye Drop] 1 drop BOTH EYES HS 05/28/20 [History] Loratadine [Claritin] 10 mg PO DAILY PRN 05/28/20 [History] Vit C/E/Zn/Coppr/Lutein/Zeaxan [Preservision Areds 2 Softgel] 1 cap PO BID 05/28/20 [History] Follow up Appointment(s)/Referral(s): Zach Vasques DO [STAFF PHYSICIAN] - 1 Week Abner Randhawa MD [Primary Care Provider] - 1-2 days Patient Instructions/Handouts: Chest Pain (DC) Activity/Diet/Wound Care/Special Instructions: Take one aspirin 81 mg daily and over the counter pepcid as needed.
== END 2020-05-29 15:48 | disposition home or self-care (01) ==
LOC: EC 19:31 → 6NMEDSUR 22:38
PROVIDERS: ADMIT Hospitalist; ATTEND Hospitalist
DX: R07.9 Chest pain, unspecified (principal); K21.9 Gastro-esophageal reflux disease without esophagitis; E66.9 Obesity, unspecified; I11.0 Hypertensive heart disease with heart failure; I25.10 Atherosclerotic heart disease of native coronary artery without angina pectoris; F32.9 Major depressive disorder, single episode, unspecified; I44.7 Left bundle-branch block, unspecified; I50.22 Chronic systolic (congestive) heart failure; E78.5 Hyperlipidemia, unspecified; Z68.31 Body mass index [BMI] 31.0-31.9, adult; Z79.82 Long term (current) use of aspirin; Z20.822 Contact with and (suspected) exposure to COVID-19; Z79.899 Other long term (current) drug therapy; F41.8 Other specified anxiety disorders
CPT/HCPCS: 99285; 36415; 93005; 85379; 83880; 80053; 80048; 83690; 83735; 84484 ×2; 85025 ×2; 85610; 85730; 87635; 71046; G0378 ×2; C8929; Q9950; 93306

== ENCOUNTER → 2020-07-29 | Outpatient (CLI) | payer MEDICARE ==
[2020-07-30 00:04] LABS: African American GFR (CKD) 102.5 (60.0-200.0); Anion Gap 8.3 mmol/L (4.00-12.00); BUN/Creat Ratio 22.86 Ratio (12.00-20.00); Calcium 9.8 mg/dL (8.7-10.3); Carbon Dioxide 27.7 mmol/L (21.6-31.8); Magnesium 2.1 mg/dL (1.5-2.4); Non-African American GFR(CKD) 88.4 (60.0-200.0); Potassium 4.4 mmol/L (3.5-5.5)
== END | disposition home or self-care (01) ==
LOC: LABWHC1 09:43
DX: I42.8 Other cardiomyopathies (principal)
CPT/HCPCS: 36415; 80048; 83735; 83880

== ENCOUNTER → 2021-04-28 | Outpatient (CLI) | payer MEDICARE ==
--- NOTE | 2021-04-28 15:22 | BD ---
EXAMINATION TYPE: Axial Bone Density DATE OF EXAM: 04/28/2021 COMPARISON: 11.29.2011 CLINICAL HISTORY: 70 YR OLD FEMALE.......ICD-10 CODE: N95.1 MENOPAUSAL Height: 62.3 SLIGHT LANGUAGE BARRIER Weight: 194 FRAX RISK QUESTIONS: Glucocorticoids (More than 3mos): YES (Ex: prednisone, prednisolone, methylprednisolone, dexamethasone, and hydrocortisone). RISK FACTORS HISTORY OF: Postmenopausal woman: YES, AT AGE 50 YRS OLD, TOTAL HYST Lost more than 2 inches in height since high school: YES Frequent falls: UNSTEADY Hyperparathyroidism: NO Adrenal Insufficiency: NO MEDICATIONS: Prednisone or other steroids: YES, FOR ARTHRITIS Additional Medications: BP MEDS, ANTI ANXIETY/DEPRESSANTS, REFLUX MEDS, STATIN FOR CHOLESTEROL, VIT D AND CALCIUM Additional History: HYPERTENSION, ANXIETY, REFLUX, CHOLESTEROL, ARTHRITIS, EXAM MEASUREMENTS: Bone mineral densitometry was performed using the [email or web address] System. Bone mineral density as measured about the Lumbar spine is: ----- L1-L4(G/cm2): 1.141 T Score Values are as follows: ----- L1: -0.5 ----- L2: -1.7 ----- L3: -2.2 ----- L4: 1.5 ----- L1-L4: -0.3 Bone mineral density has: Increased 0.2% since study of: 11.29.2011 Bone mineral density about the R hip (g/cm2): 0.968 Bone mineral density about the L hip (g/cm2): 0.938 T Score values are as follows: -----R Neck: -0.8 -----L Neck: -1.5 -----R Total: -0.3 -----L Total: -0.6 Bone mineral density has: Decreased -2.4% since study of: 11.29.2011 FRAX%S: THERE IS A 11.6% CHANCE FOR A MAJOR OSTEOPOROTIC FX AND A 2.7% FOR HIP......PROBABILITY F OR FX IN 10 YRS TIME IMPRESSION: Osteopenia (T Score between -2.5 and -1). There is slightly increased risk of fracture and the patient may be considered for treatment. Re-Screen 2-5 years. NOTE: T-SCORE=SD OF THE YOUNG ADULT MEAN.
== END | disposition home or self-care (01) ==
LOC: RADBDWWP 09:52
PROVIDERS: ATTEND Obstetrics & Gynecology
DX: M85.88 Other specified disorders of bone density and structure, other site (principal); Z78.0 Asymptomatic menopausal state
CPT/HCPCS: 77080

== ENCOUNTER → 2021-05-24 | Outpatient (CLI) | payer MEDICARE ==
--- NOTE | 2021-05-25 09:03 | MM ---
Reason for exam: screening (asymptomatic). Last mammogram was performed 3 years ago. History: Patient is postmenopausal. Benign excisional biopsy of the right breast, 1997. Physical Findings: A clinical breast exam by your physician is recommended on an annual basis and results should be correlated with mammographic findings. MG 3D Screening Mammo W/Cad Bilateral CC and MLO view(s) were taken. Prior study comparison: May 13, 2018, left breast MG work up mamm w CAD LT. April 04, 2018, bilateral MG screening mammo w CAD. The breast tissue is heterogeneously dense. This may lower the sensitivity of mammography. Stable benign calcifications. Focal asymmetry upper outer left breast. This finding is changed when compared with previous exams. ASSESSMENT: Incomplete: need additional imaging evaluation, BI-RAD 0 RECOMMENDATION: Special view mammogram of the left breast. If lesion persists on supplemental views, image directed ultrasound is recommended. [facility] will attempt to contact patient to return for supplemental views and ultrasound if indicated.
== END | disposition home or self-care (01) ==
LOC: RADMAMWWP 09:30
PROVIDERS: ATTEND Obstetrics & Gynecology
DX: Z12.31 Encounter for screening mammogram for malignant neoplasm of breast (principal); Z78.0 Asymptomatic menopausal state
CPT/HCPCS: 77063; 77067

== ENCOUNTER → 2021-05-27 | Outpatient (CLI) | payer MEDICARE ==
--- NOTE | 2021-05-27 11:13 | MM ---
Reason for exam: additional evaluation requested from abnormal screening. Last mammogram was performed less than 1 month ago. History: Patient is postmenopausal. Benign excisional biopsy of the right breast, 1997. Physical Findings: A clinical breast exam by your physician is recommended on an annual basis and results should be correlated with mammographic findings. MG 3D Work Up W/Cad LT Spot compression CC, spot compression MLO, and LM view(s) were taken of the left breast. Prior study comparison: May 24, 2021, bilateral MG 3d screening mammo w/cad. May 13, 2018, left breast MG work up mamm w CAD LT. The breast tissue is heterogeneously dense. This may lower the sensitivity of mammography. There is no discrete abnormality including area of concern. These results were verbally communicated with the patient and result sheet given to the patient on 05/27/21. ASSESSMENT: Benign, BI-RAD 2 RECOMMENDATION: Return to routine screening mammogram schedule for both breasts.
== END | disposition home or self-care (01) ==
LOC: RADMAMWWP 10:36
PROVIDERS: ATTEND Obstetrics & Gynecology
DX: R92.8 Other abnormal and inconclusive findings on diagnostic imaging of breast (principal); Z78.0 Asymptomatic menopausal state
CPT/HCPCS: 77065; G0279; 77061

== ENCOUNTER 2021-06-22 08:32 | Day surgery (SDC) | payer MEDICARE ==
[2021-06-20 16:34] VITALS: BMI 31.6
[~2021-06-22 08:32] MED LIST: LACTATED RINGERS 1,000 ML IV SCH
[2021-06-22 09:08] VITALS: TEMP 97.7
[2021-06-22] MEDS ORDERED: PROPOFOL 10 MG/ML 20 ML VIAL IV ONE (09:46)
[2021-06-22] MEDS ORDERED: LIDOCAINE 1% INJ 10MG/ML (20 ML MDV) ONE (09:46)
--- NOTE | 2021-06-22 10:27 | P.PCN ---
Date of Procedure: 06/22/21 Procedure(s) Performed: BRIEF HISTORY: Patient is a 70-year-old pleasant female scheduled for an elective colonoscopy as a part of screening for colorectal neoplasia. PROCEDURE PERFORMED: Colonoscopy with biopsy. PREOPERATIVE DIAGNOSIS: Screening for colon cancer. IV sedation per Anesthesia. PROCEDURE: After informed consent was obtained, the patient, was brought into the endoscopy unit. IV sedation was administered by Anesthesia under continuous monitoring. Digital rectal examination was normal. Initially the Olympus CF-160 flexible video colonoscope was then inserted in the rectum, gradually advanced into the cecum without any difficulty. Careful examination was performed as the scope was gradually being withdrawn. Ileocecal valve and the appendiceal orifice were visualized and appeared normal. Prep was excellent. Mucosa of the cecum, ascending colon, normal. In the transverse colon there was a 5 mm polyp that was removed by cold biopsy. Rest of the transverse colon, descending colon, sigmoid colon, and rectum appeared normal. At her sigmoid diverticulosis. Retroflexion was performed in the rectum and no lesions were seen. The patient tolerated the procedure well. IMPRESSION: 3 mm transverse colon polyp status post cold biopsy Rest of the colon appeared normal RECOMMENDATIONS: Findings of this examination were discussed with the patient and is a family. She was advised to follow with the biopsy results. If the biopsy reveals adenoma she can have a repeat colonoscopy in 5 years
[2021-06-22 10:53] VITALS: BP 155/89; PULSE 77; RESP 16
== END 2021-06-22 11:14 | disposition home or self-care (01) ==
LOC: ORWHC2ENDO 08:32
PROVIDERS: ATTEND Internal Medicine Gastroenterology
DX: Z12.11 Encounter for screening for malignant neoplasm of colon (principal); K63.5 Polyp of colon; K57.30 Diverticulosis of large intestine without perforation or abscess without bleeding; K21.9 Gastro-esophageal reflux disease without esophagitis; I10 Essential (primary) hypertension; E78.5 Hyperlipidemia, unspecified; F41.9 Anxiety disorder, unspecified; F32.A Depression, unspecified; Z79.82 Long term (current) use of aspirin; Z79.899 Other long term (current) drug therapy
CPT/HCPCS: 88305; 45380; J2001; J2704

== ENCOUNTER → 2021-07-22 | Outpatient (CLI) | payer MEDICARE ==
[2021-07-22 15:42] LABS: Appearance,Urine Clear (Clear); Bilirubin,Urine Negative (Negative); Blood,Urine Negative (Negative); Color,Urine Light Yellow; Glucose,Urine (UA) Negative (Negative); Hyaline Casts,Urine 1 /lpf (0-2); Ketones,Urine Negative (Negative); Leukocyte Esterase,Urine Small (Negative); Mucus,Urine Rare /hpf; Nitrite,Urine Negative (Negative); Protein,Urine Negative (Negative); RBC,Urine <1 /hpf (0-5); Specific Gravity,Urine 1.009 (1.001-1.035); Urobilinogen,Urine <2.0 mg/dL (<2.0); WBC,Urine 3 /hpf (0-5)
[2021-07-22 15:44] LABS: ALT 51 U/L (4-34); AST 34 U/L (14-36); African American GFR (CKD) >90 (>60 ml/min/1.73 sqM); Albumin 4.4 g/dL (3.5-5.0); Albumin/Globulin Ratio 1.5; Alkaline Phosphatase 77 U/L (38-126); Anion Gap 6 mmol/L; Blood Urea Nitrogen 23 mg/dL (7-17); Calcium 9.9 mg/dL (8.4-10.2); Carbon Dioxide 30 mmol/L (22-30); Chloride 103 mmol/L (98-107); Globulin 2.9 g/dL; Glucose 108 mg/dL (74-99); Non-African American GFR(CKD) 90 (>60 ml/min/1.73 sqM); Potassium 4.3 mmol/L (3.5-5.1); Sodium 139 mmol/L (137-145); Total Bilirubin 0.6 mg/dL (0.2-1.3); Total Protein 7.3 g/dL (6.3-8.2)
[2021-07-22 15:50] LABS: INR 0.9 (<1.2); Prothrombin Time 10.2 sec (9.0-12.0)
[2021-07-22 16:28] LABS: Basophils # (A) 0.1 k/uL (0-0.2); Basophils % (A) 1 %; Eosinophils # (A) 0.2 k/uL (0-0.7); Eosinophils % (A) 3 %; HCT 49.9 % (34.0-46.0); Lymphocytes # (A) 2.6 k/uL (1.0-4.8); Lymphocytes % (A) 32 %; MCH 31.8 pg (25.0-35.0); MCHC 32.1 g/dL (31.0-37.0); Mean Platelet Volume 7.8; Monocytes # (A) 0.5 k/uL (0-1.0); Monocytes % (A) 6 %; Neutrophils # (A) 4.4 k/uL (1.3-7.7); Neutrophils % (A) 55 %; Platelet Count 297 k/uL (150-450); RBC 5.04 m/uL (3.80-5.40); RDW 13.9 % (11.5-15.5); WBC 8.1 k/uL (3.8-10.6)
== END | disposition home or self-care (01) ==
LOC: LABWHC1 14:52
PROVIDERS: ATTEND Family Medicine
DX: Z01.812 Encounter for preprocedural laboratory examination (principal)
CPT/HCPCS: 36415; 80053; 81001; 85025; 85610; 85730

== ENCOUNTER → 2023-11-07 | Outpatient (CLI) | payer MEDICARE | END | disposition home or self-care (01) | LOC: LABPRL 12:00 | DX: Z01.812 Encounter for preprocedural laboratory examination (principal); Z22.322 Carrier or suspected carrier of Methicillin resistant Staphylococcus aureus | CPT/HCPCS: 87070 ==

== ENCOUNTER → 2023-11-09 | Outpatient (CLI) | payer MEDICARE | END | disposition home or self-care (01) | LOC: LABPAT 13:38 | PROVIDERS: ATTEND Orthopaedic Surgery Sports Medicine | DX: Z01.818 Encounter for other preprocedural examination (principal) | CPT/HCPCS: 87070 ==

== ENCOUNTER 2023-11-29 05:37 | Observation (INO) | payer MEDICARE ==
[2023-11-27 10:14] VITALS: BMI 29.9
[~2023-11-29 05:37] MED LIST changes: -LACTATED RINGERS 1,000 ML IV SCH; +TRANEXAMIC 1,000 MG/100ML-NACL 1,000 MG in SALINE 1 100ML.BAG IVPB PRN
[2023-11-29] MEDS: IV FLUID CONTINUATION 1,000 ML IV ONE (06:18)
[2023-11-29] MEDS: ACETAMINOPHEN TAB 500 MG TAB PO PRN (06:45)
[2023-11-29] MEDS: GABAPENTIN 300 MG CAP PO PRN (06:47)
[2023-11-29] MEDS: MELOXICAM 7.5 MG TAB PO PRN (06:48)
[2023-11-29] MEDS: DEXAMETHASONE SOD PHOSPHATE 4 MG/ML 1 ML VIAL IVP STA (06:52)
[2023-11-29] MEDS: ONDANSETRON 4 MG/2 ML VIAL IVP PRN (06:52)
[2023-11-29] MEDS: LACTATED RINGERS 1,000 ML IV SCH ×2 (07:00→12:32)
[2023-11-29] MEDS: MIDAZOLAM 2 MG/2 ML VIAL IV ONE (07:07)
[2023-11-29] MEDS ORDERED: DEXAMETHASONE SOD PHOSPHATE 4 MG/ML 1 ML VIAL ONE (07:28)
[2023-11-29] MEDS ORDERED: PROPOFOL 10 MG/ML 20 ML VIAL IV ONE (07:28)
[2023-11-29] MEDS ORDERED: TRANEXAMIC 1,000 MG/100ML-NACL PREMIX BAG ONE (07:28)
[2023-11-29] MEDS ORDERED: LABETALOL 5 MG/ML VIAL MDV ONE (07:28)
[2023-11-29] MEDS ORDERED: SUCCINYLCHOLINE CHLORIDE 200 MG/10 ML VIAL IV ONE (07:28)
[2023-11-29] MEDS ORDERED: MIDAZOLAM 2 MG/2 ML VIAL ONE (07:28)
[2023-11-29] MEDS ORDERED: GLYCOPYRROLATE 0.2 MG/ML 2 ML VIAL ONE (07:28)
[2023-11-29] MEDS ORDERED: fentaNYL (PF) 50 MCG/ML 2 ML AMP ONE (07:28)
[2023-11-29] MEDS ORDERED: ROCURONIUM 10 MG/ML (5 ML VIAL) IV ONE (07:28)
[2023-11-29] MEDS ORDERED: NEOSTIGMINE 1 MG/ML 10 ML VIAL ONE (07:28)
[2023-11-29] MEDS ORDERED: ROPIVACAINE 5 MG/ML 30 ML VIAL ONE (07:28)
[2023-11-29] MEDS ORDERED: ePHEDrine 50 MG/ML 1 ML VIAL ONE (07:28)
[2023-11-29] MEDS ORDERED: SODIUM CHLORIDE 0.9% (PF) 10 ML VIAL ONE (07:28)
[2023-11-29] MEDS: ceFAZolin 3,000 MG in SODIUM CHLORIDE 0.9% IRRIGATIO 3,000 ML IRRIGATION ONE (08:04)
--- NOTE | 2023-11-29 08:32 | P.ANPRN ---
Procedure Note - Anesthesia - Nerve Block Performed Right Adductor Canal Infusion Time Out Performed: Yes Date of Procedure: 11/29/23 Procedure Start Time: :07 Procedure Stop Time: 07:12 Location of Patient: Phase I Indication: Acute Post-Operative Pain, Analgesia, Dx/Pain Location (Right Knee Pain ), Requested by Surgeon Sedation Type: Sedate with meaningful contact maintained Preparation: Sterile Prep, Sterile Dressing Position: Supine Catheter: Indwelling Needle Types: Pajunk Needle Gauge: 21 Ultrasound used to visualize needle placement: Yes Ultrasound used to observe medication spread: Yes Injectate: Other (see comment) (0.375% Ropivacaine with 4 mg dexamethasone) Blood Aspirated: No Pain Paresthesia on Injection Noted: No Resistance on Injection: Normal Image Stored and Saved: Yes Events: Uneventful and Well Tolerated
--- NOTE | 2023-11-29 08:35 | P.ANPRN ---
Procedure Note - Anesthesia - Nerve Block Performed Right iPack Single Time Out Performed: Yes Date of Procedure: 11/29/23 Procedure Start Time: 07:13 Procedure Stop Time: 07:20 Location of Patient: Phase I Indication: Acute Post-Operative Pain, Analgesia, Dx/Pain Location (Right Knee Pain ), Requested by Surgeon Sedation Type: Sedate with meaningful contact maintained Preparation: Sterile Prep, Sterile Dressing Position: Supine Catheter: None Needle Types: Pajunk Needle Gauge: 21 Ultrasound used to visualize needle placement: No Ultrasound used to observe medication spread: No Injectate: Other (see comment) (15ml 0.25% Ropivacaine) Blood Aspirated: No Pain Paresthesia on Injection Noted: No Resistance on Injection: Normal Image Stored and Saved: Yes Events: Uneventful and Well Tolerated
[2023-11-29] MEDS ORDERED: NA PHOS,M-B/NA PHOS,DI-BA 133 ML ENEMA RECTAL PRN (09:40)
[2023-11-29] MEDS ORDERED: MAGNESIUM HYDROXIDE 2,400 MG/30 ML CUP PO PRN (09:40)
[2023-11-29] MEDS ORDERED: HYDROmorphone 0.5 MG/0.5 ML SYRINGE IVP PRN ×3 (09:40)
[2023-11-29] MEDS ORDERED: ONDANSETRON 4 MG/2 ML VIAL IVP PRN (09:40)
[2023-11-29] MEDS ORDERED: NALOXONE 0.4 MG/ML 1 ML VIAL IV PRN (09:40)
[2023-11-29] MEDS ORDERED: bisacodyL 10 MG SUPP RECTAL PRN (09:40)
[2023-11-29] MEDS ORDERED: traMADol 50 MG TAB PO PRN (09:40)
[2023-11-29] MEDS ORDERED: TEMAZEPAM 15 MG CAP PO PRN (09:40)
[2023-11-29] MEDS: ROPIVACAINE 1,100 MG, SODIUM CHLORIDE 0.9% 500 ML 330 ML, EMPTY PAIN BALL 1 EACH MISCELLANE PRN (10:00)
[2023-11-29] MEDS: HYDROmorphone 0.5 MG/0.5 ML SYRINGE IVP PRN (10:28)
--- NOTE | 2023-11-29 10:43 | OP ---
OPERATIVE REPORT DATE OF SERVICE : 11/29/2023 [employer] FINISH[employer] RANGE OPERATOR: NATHAN Beaulieu. PREOPERATIVE DIAGNOSIS: Right knee osteoarthrosis. POSTOPERATIVE DIAGNOSIS: Right knee osteoarthrosis. PROCEDURE PERFORMED: Right total knee arthroplasty. ANESTHESIA: General endotracheal. ESTIMATED BLOOD LOSS: 100 mL. TOURNIQUET TIME: 47 minutes at 250 mmHg. COMPLICATIONS: None apparent. DRAINS: None. DISPOSITION: Postanesthesia care unit. INDICATIONS: Fritz is a very pleasant 73-year-old female with longstanding history of right knee pain. History and physical examination are consistent with advanced right knee osteoarthrosis. She has been through significant operative management up to this point. Further treatment options were discussed and she has decided to go forward with the right total knee arthroplasty. Risks of procedure were discussed with her in detail. These risks include, but are not limited to risk of infection, nerve damage, bleeding, pain, and a small risk of deep vein thrombosis, which could lead to fatal pulmonary embolism. There is also small risk of loosening of the implant, which could require revision operation. The patient understands these risks. All of her questions were answered to her satisfaction. Appropriate informed consent was obtained. DESCRIPTION OF PROCEDURE: The patient was identified in preoperative holding area. Surgical site was marked by both the patient and myself. She was given 2 g of Ancef IV for prophylactic purposes. She was then transported to the operative suite. She was placed supine on the operating room table. A general anesthetic was then administered, dosed per the anesthesia department without apparent complications. Examination under anesthesia was then performed. The patient was 2 to 3 degrees shy of full extension. She had 100 degrees of flexion, and the medial collateral ligament, lateral collateral ligament, and posterior cruciate ligaments were stable. A tourniquet was then placed high on the right upper thigh, well-padded in preparation for surgery. The patient's right lower extremity was then prepped and draped in usual sterile fashion. Standard surgical pause was undertaken to ensure that we were operating the correct site and appropriate preoperative antibiotics had been given. All staff in the room were in agreement and we proceeded. The outlines of the patella were marked with a surgical pen. A planned 12 cm vertical incision centered over the patella was marked with a surgical pen. The leg was exsanguinated with an Esmarch dressing. The knee was then flexed and tourniquet was inflated to 250 mmHg. Total tourniquet time for the procedure was 47 minutes. Incision was then made with a 10-blade scalpel. Dissection was carried down sharply to the overlying fascia. Great care was taken to minimize the skin flaps. The knee was then exposed using a standard medial parapatellar approach. A small cuff of quadriceps tendon was then left for suturing. She was in a small bit of valgus preoperatively. A medial release was made. The medial side was released only enough to place the retractor medially. The medial meniscus was then excised as well. The lateral meniscus was also released anteriorly. Leg was then externally rotated. The patella was everted. The knee was flexed. Retractor was then placed to protect the collateral ligaments. I then proceeded to remove the infrapatellar fat pad. This was excised sharply tangentially with fibers of the patellar tendon. I then proceeded to remove the peripheral osteophytes. This was done with a rongeur. I then proceeded with the distal femoral resection. She did have near full extension. A planned 9 mm resection was then done. The femoral canal was then entered in the midline, the femur approximately 10 mm anterior to the origin of the posterior cruciate ligament. The hernandez was then advanced down the center of the femur and placed intramedullary. Based on the preoperative radiographs, the angle between the anatomic and mechanical axis of the femur was approximately 4 to 5 degrees. The valgus angle of the distal femoral cutting guide was then set at 4 degrees for the right knee. The distal femoral cutting guide was then advanced over the intramedullary hernandez. This was seated firmly against the femur. I then as mentioned planned to take 9 mm off the distal femur. The cutting block was then secured onto the femur with pins. The jig was then removed and the distal femoral cut was made through the slot of the block. The pins were removed and the distal femoral cutting block was removed. The accuracy of the distal femoral cuts was checked with 2 flat bars. I then proceeded with femoral sizing. Posterior referencing sizing guide was held firmly against the resected distal surface of the femur. The posterior condyles were resting on the posterior plane of the guide. The sizing stylus was then placed on the anterior femur. The size was measured as a size 8. I then assessed for femoral rotation. Plan for 3 degrees of external rotation. Three degrees of external rotation was placed onto the jig. These holes were then marked. I then confirmed the rotation by 3 separate methods. This was done using epicondylar axis as well as Whitesides line and posterior referencing. It was deemed that the external rotation was proper. I then went forward with placing the femoral cutting block. This was placed over the previously placed pin holes. The Yoan wing was then placed on the anterior slots to ensure that we would not notch the anterior femur with the anterior femoral cut. I then proceeded with the anterior femoral cut. This was flushed with the anterior cortex of the femur. The posterior cuts were then made, followed by the anterior chamfer cut, then the posterior chamfer cut. The cutting block was then removed. Throughout the resection, the collateral ligaments were protected with retractors. I then placed a trial size 8 femur. It was slightly wide, but the narrow fit very nicely, and it fit flush with the distal end of the femur. The drill holes were then made. I then proceeded with the tibial cut. I planned for cruciate-retaining knee. The guide was placed and set for varus valgus and for slope. Height was set for approximately 2 mm resection from the medial tibial plateau, which was the lower side. I was happy with the alignment and the amount of resection. The cutting block was then pinned to the proximal tibia. The alignment hernandez was removed and the proximal tibia was resected with a reciprocating saw. Again, this was done with retractors protecting the collateral ligaments as well as the posterior cruciate ligament. I then proceeded to evaluate the flexion and extension gaps. A 10 mm block was then placed. The flexion and extension gaps were equal. I then proceeded with resection of posterior osteophytes. She had very minimal posterior osteophytes. This was done using a curved osteotome. This resected the posterior osteophytes, and posterior capsular stripping was done off the posterior aspect of the femur at this time. The osteophytes were then removed. I then proceeded with resection of the patella. The thickness of patella was measured using the caliper. The thickness was 24 mm. The thickness of the anticipated patellar dome was taken into account. The resection was then performed and confirmed to be equal in 4 quadrants using a caliper. Approximately, 14 mm of bone remained after resection. A 29 x 8 standard patellar trial was then placed. The holes were drilled. The trial was then placed. I then proceeded with sizing tibial plate. A size D tibial plate fit very nicely. I then placed the trial femur, the tibial tray, and the patellar button. A 10 mm trial tibial insert was also placed. The components fit very nicely. She had full extension and flexion. The extension and flexion gaps were equal and stable to both varus and valgus stress. The patella tracked appropriately. The tibial tray rotation was marked with a Bovie. It was externally rotated properly. I then proceeded with tibial preparation. I first drilled the femoral holes and removed the femoral component. The tibial tray was then set for proper external rotation as well as medial lateral placement of tibia. It was then pinned into place. I then proceeded with punching the keel. I then decided to proceed with cementing of all our components. The knee was thoroughly irrigated with sterile saline solution via pulse lavage. The lateral geniculate artery was identified and cauterized. All blood was removed from the bone of the tibia femur and patella with pulse lavage. We then proceeded with cementing. Two packs of antibiotic cement were prepared on the back table by surgical first assistant. I then proceeded with cementing the tibia first. Cement was impacted in the keel as well as deeply seated in the bone. A second coat cement was then placed. The tibia was then impacted into place. Excess cement was removed with Lizzy's and jokers. I then proceeded with cementing the femoral component. The femoral component was also cemented using standard technique. Excess cement was removed. A 10 mm trial insert was then placed in the knee. It was brought into full extension with a constant axial load placed until the cement had hardened. The patellar component was then cemented as well. This was held firmly with a compressive device until the cement had dried. When the cement had dried, the knee was taken out of extension. All excess cement was removed from around the prosthesis. I then trialed the knee with a 10 mm insert. Flexion extension gaps were appropriate. The knee was stable. It came into full extension. I decided to go forward with 10 mm medial congruent cross-linked cruciate- retaining tibial insert. Polyethylene was then placed on the tibial tray and locked into place. The knee was then reduced. Knee was again further irrigated with sterile saline solution with antibiotic added. The tourniquet was then deflated. Total tourniquet time for the procedure was 47 minutes at 250 mmHg. Final components were Coni Persona size 8 narrow cruciate-retaining femoral component, size D tibial tray, a 10 mm medial congruent cruciate-retaining polyethylene insert, and a 29 x 8 mm patella. I then proceeded to closure. The knee was thoroughly irrigated. The quadriceps tendon, medial retinaculum reapproximated with #2 Ethibond suture. The extensor mechanism was then closed with a running #2 Quill suture. Subcutaneous tissues were closed with 2-0 Vicryl interrupted suture. The skin was closed with a running 3-0 Quill suture. Dermabond was applied to the incision. Sterile compressive dressing was then applied. All sponge and needle counts were deemed correct prior to closure. The patient tolerated the procedure without apparent complication. She was transferred to recovery room in stable condition. MMODL / IJN: [id number] /
--- NOTE | 2023-11-29 11:02 | XR ---
EXAMINATION TYPE: XR knee limited RT DATE OF EXAM: 11/29/2023 COMPARISON: NONE TECHNIQUE: Two views submitted HISTORY: Post op FINDINGS: There is a prosthetic knee in near anatomic alignment. There is soft tissue edema and soft tissue e mphysema/air consistent with recent surgery. IMPRESSION: 1. Postoperative change.
[2023-11-29] MEDS: ONDANSETRON 4 MG/2 ML VIAL IVP ONE (12:32)
[2023-11-29] MEDS: HYDROcodone/APAP 7.5-325MG 1 EACH TAB PO PRN (13:39)
--- NOTE | 2023-11-29 17:11 | P.CONS ---
History of Present Illness - Reason for Consult Consult date: 11/29/23 Medical Management Requesting physician: Syed Bella - History of Present Illness History of Presenting Illness: Patient is a very pleasant 73-year-old female with a past medical history of CAD, HFrEF, hypertension, hyperlipidemia, previously known left bundle branch block, and asymptomatic bradycardia with previous heart rates in 40s. She is currently admitted under orthopedic surgery team status post right total knee arthroplasty secondary to right knee osteoarthrosis. Surgical procedure was completed by Dr. Bella. We were consulted for medical management throughout hospitalization. Patient was seen and fully evaluated in room 477 after completion of surgical procedure. Patient is alert and oriented x 4 and reports only experiencing mild postoperative pain in right knee. She denies experiencing any postoperative nausea or vomiting and has not yet urinated since completion of surgical procedure. Patient denies having any headache, lightheadedness, dizziness, chest pain, palpitations, shortness of breath, or any other complaints at this time. She is visiting with family at bedside. Review of systems: Pertinent positives and negatives as discussed in HPI, a complete review of systems was performed and all other systems are negative. Physical exam: Vital signs reviewed and stable. General: Nontoxic, no distress and appears stated age. Derm: Skin warm and dry, normal coloration for ethnicity. Head: Atraumatic, normocephalic and symmetric. Eyes: EOM's intact, no lid lag, and anicteric sclera Mouth: no lip lesions, mucus membranes moist Cardiovascular: regular rate and rhythm with normal S1S2, no murmur, positive posterior tibial pulses bilaterally, and cap refill < 2 seconds. Lungs: Respirations even, regular, and unlabored on room air. Lungs CTA bilaterally, no rhonchi, no rales, no wheezing, and no accessory muscle usage. Abdominal: soft, nontender to palpation, no guarding, no appreciable organomegaly Ext: No gross muscle atrophy, no edema, no contractures. Movement and sensation intact. Postsurgical dressing with Derik wrap in place to right knee. Ice pack in place. Neuro: Speech clear, face symmetrical and CN II-XII grossly intact with no noted focal neuro deficits Psych: Alert and oriented to person, place, time, and situation. Appropriate and pleasant affect. Assessment and Plan of Care: Status post right total knee arthroplasty Management per primary admitting orthopedic surgery team including DVT prophylaxis, pain management, wound/dressing management, weightbearing, and PT/OT. Patient currently on DVT prophylaxis with aspirin 81 mg twice daily. CAD Chronic HFrEF Hypertension Hyperlipidemia Patient to continue daily medication regimen with aspirin 81 mg daily, m etoprolol 25 mg daily and 50 mg nightly, pravastatin 80 mg daily, Entresto 49-51 mg twice daily, and Lasix 40 mg daily. Data and imaging reviewed: Reviewed operative report. Vital signs reviewed and stable. Blood pressure 108/68, heart rate 72, respiratory rate 16, temp 97.7 F, and SpO2 of 93% on 2 L. Home medications reviewed and reordered. Orders placed for postoperative labs including CBC, BMP, and magnesium. Will follow-up on these results and place additional orders as indicated. Thank you for allowing us to participate in the care of this pleasant patient. Do not hesitate to contact us with questions. Someone can be reached from the [facility] hospitalist group all hours of the day at [phone] or via [employer]. Patient was seen independently by Nurse Practitioner. This document was prepared using VISENZE dictation software. Please allow for errors in bridge gang worker while rare they do occur. Eduardo Rose NP rendered care for this patient independently, reviewed the findings and plan as documented in the note above. I did not physically speak with or examine the patient on this date. Past Medical History Past Medical History: Coronary Artery Disease (CAD), Heart Failure, GERD/Reflux, Hyperlipidemia, Hypertension, Osteoarthritis (OA) Additional Past Medical History / Comment(s): bradycardia-dtr states "HR runs in 40s" History of Any Multi-Drug Resistant Organisms: None Reported Past Surgical History: Orthopedic Surgery Additional Past Surgical History / Comment(s): left shoulder rot cuff Past Anesthesia/Blood Transfusion Reactions: No Reported Reaction, Motion Sickness Additional Past Anesthesia/Blood Transfusion Reaction / Comm: no blood tranfusion hx Smoking Status: Never smoker - Past Family History Mother Family Medical History: No Reported History Father Family Medical History: Cancer Additional Family Medical History / Comment(s): lung Medications and Allergies Home Medications Medication Instructions Recorded Confirmed Type Aspirin [Adult Low Dose Aspirin EC] 81 mg PO DAILY 11/20/17 11/29/23 History Furosemide [Lasix] 40 mg PO QAM 11/20/17 11/29/23 History LORazepam [Ativan] 0.5 mg PO HS PRN 11/20/17 11/29/23 History Pravastatin Sodium 80 mg PO DAILY 11/20/17 11/29/23 History Latanoprost/Pf [Latanoprost 0.005% 1 drop BOTH EYES HS 05/28/20 11/29/23 History Eye Drop] Metoprolol Succinate [Toprol XL] 50 mg PO HS 06/20/21 11/29/23 History Diclofenac Sodium [Voltaren] 75 mg PO DAILY PRN 11/27/23 11/29/23 History Famotidine 20 mg PO BID PRN 11/27/23 11/29/23 History Metoprolol Succinate (ER) [Toprol 25 mg PO QAM 11/27/23 11/29/23 History Xl] Nitroglycerin Sl Tabs [Nitrostat] 0.4 mg SUBLINGUAL Q5M PRN 11/27/23 11/29/23 History Sacubitril/Valsartan [Entresto 49 1 each PO BID 11/27/23 11/29/23 History mg-51 mg Tablet] Sertraline [Zoloft] 100 mg PO QAM 11/27/23 11/29/23 History Unk Vitamin 1 dose PO DAILY 11/27/23 11/29/23 History Allergies Allergy/AdvReac Type Severity Reaction Status Date / Time latex Allergy skin Verified 11/29/23 06:22 irritation Physical Exam Vitals: Vital Signs Temp Pulse Pulse Resp BP Pulse Ox 11/29/23 12:00 67 16 136/73 95 11/29/23 11:30 65 16 137/66 97 11/29/23 11:15 65 16 143/74 95 11/29/23 11:00 69 16 143/68 94 L 11/29/23 10:45 70 16 161/75 94 L 11/29/23 10:35 72 16 144/73 95 11/29/23 10:23 74 16 137/76 100 11/29/23 10:08 75 16 163/82 100 11/29/23 09:53 72 16 128/58 99 11/29/23 09:38 97.8 F 80 16 142/62 98 11/29/23 07:21 71 16 123/59 98 11/29/23 07:01 97.3 F L 66 16 133/84 97 Intake and Output 11/28/23 11/29/23 11/29/23 22:59 06:59 14:59 Intake Total 200 1251 Output Total 100 Balance 200 1151 Intake: IV 200 1251 Output: Estimated Blood Loss 100 Other: Weight 87.5 kg
[2023-11-29] MEDS: SENNOSIDES-DOCUSATE SODIUM 1 EACH TAB PO SCH (22:04)
[2023-11-29] MEDS: METOPROLOL SUCCINATE (ER) 50 MG TAB.ER.24H PO SCH (22:04)
[2023-11-29] MEDS: SACUBITRIL/VALSARTAN 49 MG-51 MG TABLET PO SCH (22:04)
[2023-11-29] MEDS: ASPIRIN 81 MG PO SCH (22:04)
[2023-11-29] MEDS: LATANOPROST 0.005% OPHTH DROPS 2.5 ML BTL BOTH EYES SCH (22:04)
[2023-11-29] MEDS: LORazepam 0.5 MG TAB PO PRN (22:05)
--- NOTE | 2023-11-30 05:00 | P.PN ---
Progress Note - Text Progress Note Date: 11/30/23 73 yo female s/p Right TKA s/p Right adductor canal catheter. Patient doing well, tolerating diet. No overnight events. VSS VAS 2-3/10 in severity, mildly increased with activity dressing is clean dry and intact. No paresthesia's noted Catheter site looks intact with no leaking No complaints of N/V, no headaches Patient doing well from an anesthesia standpoint
[2023-11-30] MEDS: PRAVASTATIN SODIUM 80 MG TAB PO SCH (08:07)
[2023-11-30] MEDS: SERTRALINE 100 MG TAB PO SCH (08:07)
[2023-11-30] MEDS: METOPROLOL SUCCINATE (ER) 25 MG TAB.ER.24H PO SCH (08:07)
[2023-11-30] MEDS: FUROSEMIDE 40 MG TAB PO SCH (08:08)
[2023-11-30] MEDS: FAMOTIDINE 20 MG TAB PO PRN (08:10)
[2023-11-30 09:17] LABS: HCT 39.3 % (37.2-46.3); MCH 31.4 pg (27.0-32.0); MCHC 33.1 g/dL (32.0-37.0); MCV 94.9 FL (80.0-97.0); Mean Platelet Volume 11.2 FL (9.5-12.2); NRBC Per 100 WBC 0 X 10*3/uL (0.00-0.01); Platelet Count 259 X 10*3/uL (140-440); RBC 4.14 X 10*6/uL (4.10-5.20); RDW 13.8 % (11.5-14.5); WBC 14.14 X 10*3/uL (4.50-10.00)
[2023-11-30 09:21] LABS: Calcium 9.8 mg/dL (8.7-10.3); Carbon Dioxide 25.2 mmol/L (21.6-31.8); Chloride 107 mmol/L (96-109); Glucose 135 mg/dL (70-110); Potassium 4.3 mmol/L (3.5-5.5); Sodium 142 mmol/L (135-145)
[2023-11-30 10:10] LABS: Basophils # (A) 0.02 X 10*3/uL (0.00-0.10); Basophils % (A) 0.1 %; Eosinophils # (A) 0 X 10*3/uL (0.04-0.35); Eosinophils % (A) 0 %; Lymphocytes # (A) 1.91 X 10*3/uL (0.90-5.00); Lymphocytes % (A) 13.5 %; Monocytes # (A) 1.64 X 10*3/uL (0.20-1.00); Monocytes % (A) 11.6 %; Neutrophils # (A) 10.52 X 10*3/uL (1.80-7.70); Neutrophils % (A) 74.4 %; RBC Morphology Normal (Normal)
[2023-11-30] MEDS: HYDROcodone/APAP 7.5-325MG 1 EACH TAB PO PRN (11:49)
[2023-11-30] MEDS: MULTIVITAMINS, THERA 1 EACH TAB PO SCH (11:50)
--- NOTE | 2023-11-30 12:50 | P.PN ---
Subjective Progress Note Date: 11/30/23 Principal diagnosis: Right TKA Patient is seen at bedside this morning. She is postop day #1 from right total knee arthroplasty. She has pain at the surgical site as expected but denies any new complaints. She denies numbness, tingling or calf pain. Review of systems is negative for fever, chills, chest pain, shortness of breath or other Objective - Vital Signs Vital signs: Vital Signs Temp 98.3 F 11/30/23 06:55 Pulse 80 11/30/23 06:55 Resp 18 11/30/23 06:55 BP 105/69 11/30/23 06:55 Pulse Ox 93 L 11/30/23 06:55 FiO2 Intake & Output 11/29/23 11/30/23 11/30/23 18:59 06:59 18:59 Intake Total 1251 Output Total 100 400 Balance 1151 -400 Weight 87.5 kg Intake: IV 1251 Output: Urine 400 Estimated Blood Loss 100 Other: # Voids 2 3 - Exam Inspection reveals a benign surgical wound. There is no active bleeding or drainage. Neurovascular status is intact throughout the lower extremity with motor and sensation fully intact. Calf is soft and nontender. 2+ dorsalis pedis pulse and less than 2 second cap refill is present. - Constitutional General appearance: Present: no acute distress - Labs CBC & Chem 7: 11/30/23 05:35 11/30/23 05:35 Labs: Abnormal Lab Results - Last 24 Hours (Table) 11/30/23 11/30/23 Range/Units 05:35 05:35 WBC 14.14 H (4.50-10.00) X 10*3/uL Immature Gran # 0.05 H (0.00-0.04) X 10*3/uL Neutrophils # 10.52 H (1.80-7.70) X 10*3/uL Monocytes # 1.64 H (0.20-1.00) X 10*3/uL Eosinophils # 0 L (0.04-0.35) X 10*3/uL Glucose 135 H (70-110) mg/dL Assessment and Plan (1) Right knee DJD Narrative/Plan: She will continue with routine postop orthopedic protocol including pain management, wound care, PT, DVT prophylaxis and medical management. Expect that she will transfer to [facility] in next 1-2 days Current Visit: Yes Status: Acute Priority: Medium Code(s): M17.11 - UNILATERAL PRIMARY OSTEOARTHRITIS, RIGHT KNEE SNOMED Code(s): 356786117963183 Time with Patient: Less than 30
--- NOTE | 2023-11-30 16:42 | P.PN ---
Subjective Progress Note Date: 11/30/23 Hospital Course: Patient is a very pleasant 73-year-old female with a past medical history of CAD, HFrEF, hypertension, hyperlipidemia, previously known left bundle branch block, and asymptomatic bradycardia with previous heart rates in 40s. She is currently admitted under orthopedic surgery team status post right total knee arthroplasty secondary to right knee osteoarthrosis. Surgical procedure was completed by Dr. Bella. We were consulted for medical management throughout hospitalization. Physical exam: Patient was seen and fully evaluated at bedside. She is postoperative day 1 and appears to be doing well. Patient does report moderate pain to right knee radiating up into his thigh states continued difficulties with ambulation. She denies having any other complaints or concerns at this time. Vital signs reviewed and stable. General: Nontoxic, no distress and appears stated age. Derm: Skin warm and dry, normal coloration for ethnicity. Head: Atraumatic, normocephalic and symmetric. Eyes: EOM's intact, no lid lag, and anicteric sclera Mouth: no lip lesions, mucus membranes moist Cardiovascular: regular rate and rhythm with normal S1S2, no murmur, positive posterior tibial pulses bilaterally, and cap refill < 2 seconds. Lungs: Respirations even, regular, and unlabored on room air. Lungs CTA bilaterally, no rhonchi, no rales, no wheezing, and no accessory muscle usage. Abdominal: soft, nontender to palpation, no guarding, no appreciable organomegaly Ext: No gross muscle atrophy, no edema, no contractures. Movement and sensation intact. Postsurgical dressing with Derik wrap in place to right knee. Ice pack in place. Neuro: Speech clear, face symmetrical and CN II-XII grossly intact with no noted focal neuro deficits Psych: Alert and oriented to person, place, time, and situation. Appropriate and pleasant affect. Assessment and Plan of Care: Status post right total knee arthroplasty Management per primary admitting orthopedic surgery team including DVT prophylaxis, pain management, wound/dressing management, weightbearing, and PT/OT. Patient currently on DVT prophylaxis with aspirin 81 mg twice daily. Leukocytosis Reactive secondary to surgical procedure, no signs of infection. No need for further intervention. CAD Chronic HFrEF Hypertension Hyperlipidemia Patient to continue daily medication regimen with aspirin 81 mg daily, metoprolol 25 mg daily and 50 mg nightly, pravastatin 80 mg daily, Entresto 49- 51 mg twice daily, and Lasix 40 mg daily. Data and imaging reviewed: Vital signs reviewed and stable. Blood pressure 105/69, heart rate 80, respiratory rate 18, temp 98.3 F, and SpO2 of 93% on room air. Postoperative labs reviewed. CBC showing leukocytosis with WBC count of 14.14 otherwise normal findings. BMP unremarkable. Glucose 135. Magnesium 2.0. Thank you for allowing us to participate in the care of this pleasant patient. Do not hesitate to contact us with questions. Someone can be reached from the [facility] hospitalist group all hours of the day at [phone] or via [email or web address]. Patient was seen independently by Nurse Practitioner. This document was prepared using C[employer]knation dictation software. Please allow for errors in behavioral science chair while rare they do occur. I reviewed the documentation as provided by the JUAN above, who is the original author of this note. I agree with the documented assessment and plan, with the following changes: none Objective - Vital Signs Vital signs: Vital Signs Temp 98.3 F 11/30/23 02:00 Pulse 77 11/30/23 02:00 Resp 20 11/30/23 02:00 BP 129/79 11/30/23 02:00 Pulse Ox 97 11/30/23 02:00 FiO2 Intake & Output 11/29/23 11/30/23 11/30/23 18:59 06:59 18:59 Intake Total 1251 Output Total 100 400 Balance 1151 -400 Weight 87.5 kg Intake: IV 1251 Output: Urine 400 Estimated Blood Loss 100 Other: # Voids 2 3 - Labs CBC & Chem 7: 11/30/23 05:35 11/30/23 05:35 Labs: Abnormal Lab Results - Last 24 Hours (Table) 11/30/23 Range/Units 05:35 WBC 14.14 H (4.50-10.00) X 10*3/uL
[2023-11-30] MEDS: ACETAMINOPHEN TAB 325 MG TAB PO PRN (22:15)
--- NOTE | 2023-12-01 08:10 | P.PN ---
Subjective Progress Note Date: 12/01/23 Principal diagnosis: Status post right total knee arthroplasty This is a 73 year-old female post right total knee arthroplasty This is post-op day 2. The patient was evaluated at the bedside today. The patient denies nausea, vomiting, abdominal pain, shortness of breath, and chest pain this morning. She states her pain is controlled at this time with the [place] 7.5mg. The patient has been up with physical therapy. We are awaiting insurance authorization for skilled rehab. Objective - Vital Signs Vital signs: Vital Signs Temp 98.3 F 12/01/23 00:45 Pulse 74 12/01/23 00:45 Resp 16 12/01/23 00:45 BP 115/68 12/01/23 00:45 Pulse Ox 92 L 12/01/23 00:45 FiO2 Intake & Output 11/30/23 12/01/23 12/01/23 18:59 06:59 18:59 Output Total 500 Balance -500 Output: Urine 500 Other: # Voids 4 1 # Bowel Movements 0 - Exam The patient does not appear in acute distress. Alert and orientated x3. Dressing is clean dry and intact. Incision appears fine with no erythema or active drainage. Calf is soft and nontender. Good foot and ankle motion without difficulty. Sensation and circulatory status is intact. - Labs CBC & Chem 7: 11/30/23 05:35 11/30/23 05:35 Labs: Abnormal Lab Results - Last 24 Hours (Table) 11/30/23 11/30/23 Range/Units 05:35 05:35 WBC 14.14 H (4.50-10.00) X 10*3/uL Immature Gran # 0.05 H (0.00-0.04) X 10*3/uL Neutrophils # 10.52 H (1.80-7.70) X 10*3/uL Monocytes # 1.64 H (0.20-1.00) X 10*3/uL Eosinophils # 0 L (0.04-0.35) X 10*3/uL Glucose 135 H (70-110) mg/dL Assessment and Plan (1) Unilateral primary osteoarthritis, right knee Current Visit: Yes Status: Acute Code(s): M17.11 - UNILATERAL PRIMARY OSTEOARTHRITIS, RIGHT KNEE SNOMED Code(s): 885643312681616 (2) Status post total right knee replacement Current Visit: Yes Status: Acute Code(s): Z96.651 - PRESENCE OF RIGHT ARTIFICIAL KNEE JOINT SNOMED Code(s): 8236818426952 Plan: 1. Continue pain control with [place] 7.5mg 2. Anticoagulation with Aspirin 81 mg BID 3. Continue physical therapy and ambulation 4. Anticipate discharge to skilled rehab when auth is obtained and bed is available.
--- NOTE | 2023-12-01 10:18 | P.PN ---
Subjective Progress Note Date: 12/01/23 Hospital Course: Patient is a very pleasant 73-year-old female with a past medical history of CAD, HFrEF, hypertension, hyperlipidemia, previously known left bundle branch block, and asymptomatic bradycardia with previous heart rates in 40s. She is currently admitted under orthopedic surgery team status post right total knee arthroplasty secondary to right knee osteoarthrosis. Surgical procedure was completed by Dr. Bella. We were consulted for medical management throughout hospitalization. Physical exam: Patient was seen and fully evaluated at bedside. She is postoperative day 2 and visiting with daughter and granddaughter at bedside. Patient does report doing a bit better today states only mild postoperative pain throughout right knee and upper thigh. She denies having any nausea, vomiting, chest pain, palpitations, shortness of breath, cough or congestion, or experiencing any difficulties with urinating. Vital signs reviewed and stable. General: Nontoxic, no distress and appears stated age. Derm: Skin warm and dry, normal coloration for ethnicity. Head: Atraumatic, normocephalic and symmetric. Eyes: EOM's intact, no lid lag, and anicteric sclera Mouth: no lip lesions, mucus membranes moist Cardiovascular: regular rate and rhythm with normal S1S2, no murmur, positive posterior tibial pulses bilaterally, and cap refill < 2 seconds. Lungs: Respirations even, regular, and unlabored on room air. Lungs CTA bilaterally, no rhonchi, no rales, no wheezing, and no accessory muscle usage. Abdominal: soft, nontender to palpation, no guarding, no appreciable organomegaly Ext: No gross muscle atrophy, no edema, no contractures. Movement and sensation intact. Postsurgical dressing with Derik wrap in place to right knee. Ice pack in place. Neuro: Speech clear, face symmetrical and CN II-XII grossly intact with no noted focal neuro deficits Psych: Alert and oriented to person, place, time, and situation. Appropriate and pleasant affect. Assessment and Plan of Care: Postoperative hypoxia -Likely secondary to postoperative atelectasis, no signs of infection. Discussed with patient and patient's daughter at bedside patient to practice coughing and deep breathing and use incentive spirometry 10-15 times hourly while awake. -Increase activity, out of bed with all meals. -Continue supplemental oxygen to maintain SpO2 equal to or greater than 92% and wean as patient tolerates. Patient currently on 2 L O2 via nasal cannula with SpO2 of 93%. -If postoperative hypoxia persists, may consider chest x-ray tomorrow morning.. Status post right total knee arthroplasty Management per primary admitting orthopedic surgery team including DVT prophylaxis, pain management, wound/dressing management, weightbearing, and PT/OT. Patient currently on DVT prophylaxis with aspirin 81 mg twice daily. Leukocytosis Reactive secondary to surgical procedure, no signs of infection. No need for further intervention. CAD Chronic HFrEF Hypertension Hyperlipidemia Patient to continue daily medication regimen with aspirin 81 mg daily, metoprolol 25 mg daily and 50 mg nightly, pravastatin 80 mg daily, Entresto 49- 51 mg twice daily, and Lasix 40 mg daily. Data and imaging reviewed: Vital signs reviewed and stable. Blood pressure 133/76, heart rate 74, respiratory rate 17, temp 98.6 F, and SpO2 of 93% on 2 L. Postoperative labs. CBC showing leukocytosis with WBC count of 14.14 otherwise normal findings. BMP unremarkable. Glucose 135. Magnesium 2.0. Discussed with orthopedic and case management, plan is for discharge to [facility] on 12/03/2023.. Thank you for allowing us to participate in the care of this pleasant patient. Do not hesitate to contact us with questions. Someone can be reached from the [facility] hospitalist group all hours of the day at [phone] or via perfect serve. Patient was seen independently by Nurse Practitioner. This document was prepared using WeYAP dictation software. Please allow for errors in technical service specialist while rare they do occur. I reviewed the documentation as provided by the JUAN above, who is the original author of this note. I agree with the documented assessment and plan, with the following changes: none Objective - Vital Signs Vital signs: Vital Signs Temp 98.3 F 12/01/23 00:45 Pulse 74 12/01/23 00:45 Resp 16 12/01/23 00:45 BP 115/68 12/01/23 00:45 Pulse Ox 92 L 12/01/23 00:45 FiO2 Intake & Output 11/30/23 12/01/23 12/01/23 18:59 06:59 18:59 Output Total 500 Balance -500 Output: Urine 500 Other: # Voids 4 1 # Bowel Movements 0 - Labs CBC & Chem 7: 12/02/23 05:56 09/08/24 05:56 Labs: Abnormal Lab Results - Last 24 Hours (Table) 11/30/23 11/30/23 Range/Units 05:35 05:35 WBC 14.14 H (4.50-10.00) X 10*3/uL Immature Gran # 0.05 H (0.00-0.04) X 10*3/uL Neutrophils # 10.52 H (1.80-7.70) X 10*3/uL Monocytes # 1.64 H (0.20-1.00) X 10*3/uL Eosinophils # 0 L (0.04-0.35) X 10*3/uL Glucose 135 H (70-110) mg/dL
--- NOTE | 2023-12-02 09:44 | P.PN ---
Subjective Progress Note Date: 12/02/23 Principal diagnosis: Status post right total knee arthroplasty This is a 73 year-old female post right total knee arthroplasty This is post-op day 3. The patient was evaluated at the bedside today. The patient denies nausea, vomiting, abdominal pain, shortness of breath, and chest pain this morning. She states her pain is controlled at this time with the [place] 7.5mg. The patient has been up with physical therapy. We are awaiting insurance authorization for skilled rehab. No new complaints today. Objective - Vital Signs Vital signs: Vital Signs Temp 97.6 F 12/02/23 07:55 Pulse 74 12/02/23 07:55 Resp 18 12/02/23 07:55 BP 122/77 12/02/23 07:55 Pulse Ox 94 L 12/02/23 07:55 FiO2 Intake & Output 12/01/23 12/02/23 12/02/23 18:59 06:59 18:59 Other: Voiding Method Toilet # Voids 1 1 - Exam The patient does not appear in acute distress. Alert and orientated x3. Dressing is clean dry and intact. Incision appears fine with no erythema or active drainage. Calf is soft and nontender. Good foot and ankle motion w ithout difficulty. Sensation and circulatory status is intact. - Labs CBC & Chem 7: 11/30/23 05:35 11/30/23 05:35 Assessment and Plan (1) Unilateral primary osteoarthritis, right knee Current Visit: Yes Status: Acute Code(s): M17.11 - UNILATERAL PRIMARY OSTEOARTHRITIS, RIGHT KNEE SNOMED Code(s): 069104501955931 (2) Status post total right knee replacement Current Visit: Yes Status: Acute Code(s): Z96.651 - PRESENCE OF RIGHT ARTIFICIAL KNEE JOINT SNOMED Code(s): 8568584082545 Plan: 1. Continue pain control with [place] 7.5mg 2. Anticoagulation with Aspirin 81 mg BID 3. Continue physical therapy and ambulation 4. Anticipate discharge to skilled rehab when auth is obtained and bed is available.
[2023-12-02 09:58] LABS: Blood Urea Nitrogen 9.8 mg/dL (9.0-27.0); Calcium 9.5 mg/dL (8.7-10.3); Carbon Dioxide 26.4 mmol/L (21.6-31.8); Chloride 105 mmol/L (96-109); Glucose 110 mg/dL (70-110); Magnesium 2.2 mg/dL (1.5-2.4); Potassium 3.5 mmol/L (3.5-5.5); Sodium 140 mmol/L (135-145)
[2023-12-02 10:19] LABS: Basophils # (A) 0.07 X 10*3/uL (0.00-0.10); Basophils % (A) 0.7 %; Eosinophils # (A) 0.13 X 10*3/uL (0.04-0.35); Eosinophils % (A) 1.3 %; HCT 38.4 % (37.2-46.3); HGB 12.8 g/dL (12.0-15.0); Lymphocytes # (A) 2.25 X 10*3/uL (0.90-5.00); Lymphocytes % (A) 22.5 %; MCH 31.4 pg (27.0-32.0); MCHC 33.3 g/dL (32.0-37.0); MCV 94.3 FL (80.0-97.0); Mean Platelet Volume 11.2 FL (9.5-12.2); Monocytes # (A) 1.12 X 10*3/uL (0.20-1.00); Monocytes % (A) 11.2 %; NRBC Per 100 WBC 0 X 10*3/uL (0.00-0.01); Neutrophils % (A) 63.9 %; Platelet Count 271 X 10*3/uL (140-440); RBC 4.07 X 10*6/uL (4.10-5.20); RDW 13.9 % (11.5-14.5); WBC 10.01 X 10*3/uL (4.50-10.00)
--- NOTE | 2023-12-02 12:48 | P.PN ---
Subjective Progress Note Date: 12/02/23 Hospital Course: Patient is a very pleasant 73-year-old female with a past medical history of CAD, HFrEF, hypertension, hyperlipidemia, previously known left bundle branch block, and asymptomatic bradycardia with previous heart rates in 40s. She is currently admitted under orthopedic surgery team status post right total knee arthroplasty secondary to right knee osteoarthrosis. Surgical procedure was completed by Dr. Bella. We were consulted for medical management throughout hospitalization. Physical exam: Patient was seen and fully evaluated at bedside. She is postoperative day 3 and doing well. Patient does report feeling some pain and discomfort this morning and overall feeling worn out and sleepy. Patient states she may have overdid it by taking shower this morning. She denies having any other complaints at this time. Vital signs reviewed and stable. General: Nontoxic, no distress and appears stated age. Derm: Skin warm and dry, normal coloration for ethnicity. Head: Atraumatic, normocephalic and symmetric. Eyes: EOM's intact, no lid lag, and anicteric sclera Mouth: no lip lesions, mucus membranes moist Cardiovascular: regular rate and rhythm with normal S1S2, no murmur, positive posterior tibial pulses bilaterally, and cap refill < 2 seconds. Lungs: Respirations even, regular, and unlabored on room air. Lungs CTA bilaterally, no rhonchi, no rales, no wheezing, and no accessory muscle usage. Abdominal: soft, nontender to palpation, no guarding, no appreciable organomegaly Ext: No gross muscle atrophy, no edema, no contractures. Movement and sensation intact. Postsurgical dressing in place to right knee with mild bruising noted surrounding. Neuro: Speech clear, face symmetrical and CN II-XII grossly intact with no noted focal neuro deficits Psych: Alert and oriented to person, place, time, and situation. Appropriate and pleasant affect. Assessment and Plan of Care: Postoperative hypoxia, resolved -Likely secondary to postoperative atelectasis, no signs of infection. -Continue coughing and deep breathing and use incentive spirometry 10-15 times hourly while awake. -Increase activity, out of bed with all meals. Status post right total knee arthroplasty Management per primary admitting orthopedic surgery team including DVT prop hylaxis, pain management, wound/dressing management, weightbearing, and PT/OT. Patient currently on DVT prophylaxis with aspirin 81 mg twice daily. Leukocytosis Reactive secondary to surgical procedure, no signs of infection. No need for further intervention. CAD Chronic HFrEF Hypertension Hyperlipidemia Patient to continue daily medication regimen with aspirin 81 mg daily, metoprolol 25 mg daily and 50 mg nightly, pravastatin 80 mg daily, Entresto 49- 51 mg twice daily, and Lasix 40 mg daily. Data and imaging reviewed: Vital signs reviewed and stable. Blood pressure 122/77, heart rate 74, respiratory rate 18, temp 97.6 F, and SpO2 of 94% on room air. Morning labs reviewed. CBC showing improvement in postoperative leukocytosis decreasing from 14.14 down to 10.01 this morning. BMP unremarkable. Blood glucose 110. Magnesium 2.2. Discussed with orthopedic PA, plan is for discharge to [facility] tomorrow. Thank you for allowing us to participate in the care of this pleasant patient. Do not hesitate to contact us with questions. Someone can be reached from the [facility] hospitalist group all hours of the day at [phone] or via [email or web address]. Patient was seen independently by Nurse Practitioner. This document was prepared using [email or web address] dictation software. Please allow for errors in special warfare boat operator while rare they do occur. I reviewed the documentation as provided by the JUAN above, who is the original author of this note. I agree with the documented assessment and plan, with the following changes: none Objective - Vital Signs Vital signs: Vital Signs Temp 98.4 F 12/02/23 01:04 Pulse 73 12/02/23 01:04 Resp 16 12/02/23 01:04 BP 132/71 12/02/23 01:04 Pulse Ox 93 L 12/02/23 01:04 FiO2 Intake & Output 12/01/23 12/02/23 12/02/23 18:59 06:59 18:59 Other: Voiding Method Toilet # Voids 1 1 - Labs CBC & Chem 7: 12/02/23 05:56 12/02/23 05:56
[2023-12-03 07:19] VITALS: RESP 18
--- NOTE | 2023-12-03 12:05 | P.PN ---
Subjective Progress Note Date: 12/03/23 Hospital Course: Patient is a very pleasant 73-year-old female with a past medical history of CAD, HFrEF, hypertension, hyperlipidemia, previously known left bundle branch block, and asymptomatic bradycardia with previous heart rates in 40s. She is currently admitted under orthopedic surgery team status post right total knee arthroplasty secondary to right knee osteoarthrosis. Surgical procedure was completed by Dr. Bella. We were consulted for medical management throughout hospitalization. Physical exam: Patient was seen and fully evaluated at bedside. She is postoperative day 4 and doing well. Patient states pain in right knee is slightly worse than yesterday stating it is moderate in intensity. She denies having any other questions, needs, or complaints at this time. Family at bedside. Vital signs reviewed and stable. General: Nontoxic, no distress and appears stated age. Derm: Skin warm and dry, normal coloration for ethnicity. Head: Atraumatic, normocephalic and symmetric. Eyes: EOM's intact, no lid lag, and anicteric sclera Mouth: no lip lesions, mucus membranes moist Cardiovascular: regular rate and rhythm with normal S1S2, no murmur, positive posterior tibial pulses bilaterally, and cap refill < 2 seconds. Lungs: Respirations even, regular, and unlabored on room air. Lungs CTA bilaterally, no rhonchi, no rales, no wheezing, and no accessory muscle usage. Abdominal: soft, nontender to palpation, no guarding, no appreciable organomegaly Ext: No gross muscle atrophy, no edema, no contractures. Movement and sensation intact. Postsurgical dressing in place to right knee with mild bruising noted surrounding. Neuro: Speech clear, face symmetrical and CN II-XII grossly intact with no noted focal neuro deficits Psych: Alert and oriented to person, place, time, and situation. Appropriate and pleasant affect. Assessment and Plan of Care: Postoperative hypoxia, resolved -Likely secondary to postoperative atelectasis, no signs of infection. -Continue coughing and deep breathing and use incentive spirometry 10-15 times hourly while awake. -Increase activity, out of bed with all meals. Status post right total knee arthroplasty Management per primary admitting orthopedic surgery team including DVT prophylaxis, pain management, wound/dressing management, weightbearing, and PT/OT. Patient currently on DVT prophylaxis with aspirin 81 mg twice daily. Leukocytosis Reactive secondary to surgical procedure, no signs of infection. No need for further intervention. CAD Chronic HFrEF Hypertension Hyperlipidemia Patient to continue daily medication regimen with aspirin 81 mg daily, metoprolol 25 mg daily and 50 mg nightly, pravastatin 80 mg daily, Entresto 49- 51 mg twice daily, and Lasix 40 mg daily. Data and imaging reviewed: Vital signs reviewed and stable. Blood pressure 131/83, heart rate 74, respiratory rate 18, temp 97.8 F, and SpO2 of 92% on room air. Llabs reviewed. CBC showing improvement in postoperative leukocytosis decreasing from 14.14 down to 10.01 this morning. BMP unremarkable. Blood glucose 110. Magnesium 2.2. Discussed with orthopedic PA and Product Expert, plan is for discharge to [facility] tomorrow. Patient is medically optimized and cleared from medical standpoint for discharge once discharged by primary admitting orthopedic surgery team. Thank you for allowing us to participate in the care of this pleasant patient. Do not hesitate to contact us with questions. Someone can be reached from the [facility] hospitalist group all hours of the day at [phone] or via [employer]. Patient was seen independently by Nurse Practitioner. This document was prepared using [employer] dictation software. Please allow for errors in trade sales assistant while rare they do occur. I reviewed the documentation as provided by the JUAN above, who is the original author of this note. I agree with the documented assessment and plan, with the following changes: none Objective - Vital Signs Vital signs: Vital Signs Temp 97.8 F 12/03/23 07:18 Pulse 74 12/03/23 07:18 Resp 18 12/03/23 07:18 BP 131/83 12/03/23 07:18 Pulse Ox 92 L 12/03/23 07:18 FiO2 Intake & Output 12/02/23 12/03/23 12/03/23 18:59 06:59 18:59 Other: Voiding Method Toilet # Voids 1 1 - Labs CBC & Chem 7: 12/02/23 05:56 12/02/23 05:56 Labs: Abnormal Lab Results - Last 24 Hours (Table) 12/02/23 12/02/23 Range/Units 05:56 05:56 WBC 10.01 H (4.50-10.00) X 10*3/uL RBC 4.07 L (4.10-5.20) X 10*6/uL Monocytes # 1.12 H (0.20-1.00) X 10*3/uL Creatinine 0.5 L (0.6-1.5) mg/dL
--- NOTE | 2023-12-03 13:38 | P.DS ---
Providers Date of admission: 11/30/23 13:30 Expected date of discharge: 12/03/23 Attending physician: Syed Bella Consults: 11/29/23 09:40 Consult Physician Routine Consulting Provider: Nikhil Guerrero Consult Reason/Comments: post op medical management Do you want consulting provider notified?: Yes Primary care physician: Liseth Zhang MD - Discharge Diagnosis(es) (1) Right knee DJD Patient was admitted to the OR on 11/29/23 to undergo a right total knee arthroplasty. She had failed conservative measures as an outpatient and desired to proceed with elective surgery after given informed consent.SHe underwent the above procedure which he tolerated well without complication. Postoperative hospital course has remained without complication. On day of discharge she is afebrile, vital signs stable, labs within acceptable ranges, tolerating by mouth meds and diet, voiding without difficulty, positive flatus, denies abdominal pain or calf pain, pain is controlled on oral pain medication and has no new complaints. Wound is benign, neurovascular status is intact, calf is soft and nontender, abdomen soft and nontender. Review of systems is negative for numb ness, tingling, fever, chills, chest pain, shortness of breath, nausea, vomiting, dizziness, headaches, slurred speech or other. Current Visit: Yes Status: Acute Priority: Medium Procedures: Right TKA Patient Condition at Discharge: Good Plan - Discharge Summary Discharge Rx Participant: No New Discharge Prescriptions: New Aspirin [Adult Low Dose Aspirin EC] 81 mg PO BID #60 tab HYDROcodone/APAP 7.5-325MG [[place] 7.5-325] 1 - 2 tab PO Q6HR PRN #32 tab PRN Reason: Pain Ondansetron [Zofran] 4 mg PO Q8HR PRN #21 tab PRN Reason: Nausea Multivitamins, Thera [Multivitamin (formulary)] 1 each PO DAILY@1200 tab Acetaminophen Tab [Tylenol] 650 mg PO Q4HR PRN tab PRN Reason: Pain Scale 1 To 5 Docusate [Colace] 100 mg PO BID #60 capsule Continue Pravastatin Sodium 80 mg PO DAILY LORazepam [Ativan] 0.5 mg PO HS PRN PRN Reason: sleep Furosemide [Lasix] 40 mg PO QAM Latanoprost/Pf [Latanoprost 0.005% Eye Drop] 1 drop BOTH EYES HS Metoprolol Succinate [Toprol XL] 50 mg PO HS Sertraline [Zoloft] 100 mg PO QAM Nitroglycerin Sl Tabs [Nitrostat] 0.4 mg SUBLINGUAL Q5M PRN PRN Reason: Chest Pain Famotidine 20 mg PO BID PRN PRN Reason: reflux Metoprolol Succinate (ER) [Toprol XL] 25 mg PO QAM Sacubitril/Valsartan [Entresto 49 mg-51 mg Tablet] 1 each PO BID Unk Vitamin 1 dose PO DAILY Diclofenac Sodium [Voltaren] 75 mg PO DAILY PRN PRN Reason: Pain No Action Aspirin [Adult Low Dose Aspirin EC] 81 mg PO DAILY Discharge Medication List Aspirin [Adult Low Dose Aspirin EC] 81 mg PO DAILY 11/20/17 [History] Furosemide [Lasix] 40 mg PO QAM 11/20/17 [History] LORazepam [Ativan] 0.5 mg PO HS PRN 11/20/17 [History] Pravastatin Sodium 80 mg PO DAILY 11/20/17 [History] Latanoprost/Pf [Latanoprost 0.005% Eye Drop] 1 drop BOTH EYES HS 05/28/20 [History] Metoprolol Succinate [Toprol XL] 50 mg PO HS 06/20/21 [History] Diclofenac Sodium [Voltaren] 75 mg PO DAILY PRN 11/27/23 [History] Famotidine 20 mg PO BID PRN 11/27/23 [History] Metoprolol Succinate (ER) [Toprol XL] 25 mg PO QAM 11/27/23 [History] Nitroglycerin Sl Tabs [Nitrostat] 0.4 mg SUBLINGUAL Q5M PRN 11/27/23 [History] Sacubitril/Valsartan [Entresto 49 mg-51 mg Tablet] 1 each PO BID 11/27/23 [History] Sertraline [Zoloft] 100 mg PO QAM 11/27/23 [History] Unk Vitamin 1 dose PO DAILY 11/27/23 [History] Aspirin [Adult Low Dose Aspirin EC] 81 mg PO BID #60 tab 11/30/23 [Rx] Docusate [Colace] 100 mg PO BID #60 capsule 11/30/23 [Rx] HYDROcodone/APAP 7.5-325MG [[place] 7.5-325] 1 - 2 tab PO Q6HR PRN #32 tab 11/30/23 [Rx] Ondansetron [Zofran] 4 mg PO Q8HR PRN #21 tab 11/30/23 [Rx] Acetaminophen Tab [Tylenol] 650 mg PO Q4HR PRN tab 12/03/23 [Rx] Multivitamins, Thera [Multivitamin (formulary)] 1 each PO DAILY@1200 tab 12/03/23 [Rx] Follow up Appointment(s)/Referral(s): Obey Ackerman, [NON-STAFF] - As Needed Syed Bella MD [STAFF PHYSICIAN] - 12/11/23 3:30 pm Activity/Diet/Wound Care/Special Instructions: Weight bear as tolerated May shower after 3 days if no bleeding Keep wound clean and dry Take meds as directed F/U with Dr. Bella in office Discharge Disposition: TRANSFER TO SNF/ECF
[2023-12-03 14:26] VITALS: BP 138/78; PULSE 70; TEMP 97.5
== END 2023-12-03 15:38 ==
LOC: OR 05:37 → 4SSUR 09:30 → OR 11-30 13:30 → 4SSUR 11-30 13:30
PROVIDERS: ADMIT Orthopaedic Surgery Sports Medicine; ATTEND Orthopaedic Surgery Sports Medicine
DX: M17.11 Unilateral primary osteoarthritis, right knee (principal); J95.89 Other postprocedural complications and disorders of respiratory system, not elsewhere classified; R09.02 Hypoxemia; M25.761 Osteophyte, right knee; I11.0 Hypertensive heart disease with heart failure; I50.22 Chronic systolic (congestive) heart failure; I25.10 Atherosclerotic heart disease of native coronary artery without angina pectoris; I42.0 Dilated cardiomyopathy; G47.00 Insomnia, unspecified; E66.9 Obesity, unspecified; Z68.31 Body mass index [BMI] 31.0-31.9, adult; F41.1 Generalized anxiety disorder; E78.5 Hyperlipidemia, unspecified; D72.829 Elevated white blood cell count, unspecified; I44.7 Left bundle-branch block, unspecified; R00.1 Bradycardia, unspecified; Z79.82 Long term (current) use of aspirin; Z79.899 Other long term (current) drug therapy; Z91.040 Latex allergy status; Z87.440 Personal history of urinary (tract) infections
CPT/HCPCS: 64448; 64999; 80048; 83735; 85025